=== PATIENT | female | born 1940 | race Caucasian/White ===

== ENCOUNTER 2018-06-16 21:40 | Inpatient (IN) ==
[2018-06-16 23:06] LABS: BILIRUBIN URINE NEGATIVE (NEGATIVE); BLOOD URINE NEGATIVE (NEGATIVE); CLARITY CLEAR (CLEAR); COLOR YELLOW; GLUCOSE URINE NEGATIVE (NEGATIVE); KETONE URINE TRACE mg/dL (NEGATIVE); LEUKOCYTES URINE TRACE (NEGATIVE); NITRITE URINE NEGATIVE (NEGATIVE); PROTEIN URINE TRACE mg/dL (NEGATIVE); URINE BACTERIA 1+ /HFP; URINE EPITHELIAL CELLS <10 /HPF (<10); URINE RBC <10 /HPF (<10); URINE SOURCE CATH; URINE WBC <10 /HPF (<10); UROBILINOGEN URINE 4 mg/dL
[2018-06-16 23:15] LABS: UR AMPHETAMINES QUAL NONE DETECTED (NONE DETECT); UR BARBITUATES QUAL NONE DETECTED (NONE DETECT); UR BENZODIAZEPIN QUAL NONE DETECTED (NONE DETECT); UR CANNABINOIDS QUAL NONE DETECTED (NONE DETECT); UR COCAINE QUAL NONE DETECTED (NONE DETECT); UR METHADONE QUAL NONE DETECTED (NONE DETECT); UR METHAMPHETAMINE QUAL NONE DETECTED (NONE DETECT); UR OPIATES QUAL NONE DETECTED (NONE DETECT); UR OXYCODONE QUAL NONE DETECTED (NONE DETECT); UR PCP QUAL NONE DETECTED (NONE DETECT); UR PROPOXYPHENE QUAL NONE DETECTED (NONE DETECT); UR TCA QUAL NONE DETECTED (NONE DETECT)
[2018-06-16 23:38] LABS: ALBUMIN 3.3 g/dL (3.5-5.0); CALCIUM 8.8 mg/dL (8.8-10.2); CREATININE 1.7 mg/dL (0.5-0.9); POTASSIUM 3.5 mmol/L (3.5-5.1); TOTAL BILIRUBIN 1.7 mg/dL (0.20-1.00); TOTAL PROTEIN 6.9 g/dL (6.3-8.3)
[2018-06-16 23:53] LABS: BASO# 0.03 X1000 (0.0-0.2); BASO% 0.2 % (0.0-0.8); EOS# 0.03 X1000 (0.0-0.7); EOS% 0.2 % (0.0-10.0); HEMATOCRIT 36.4 % (37.0-47.0); HEMOGLOBIN 11.8 g/dL (12.0-16.0); IMM GRAN# 0.04 X1000 (0.0-0.04); IMM GRAN% 0.3 % (0.0-0.5); LYMPH# 1.53 X1000 (1.2-3.4); LYMPH% 10.8 % (20.5-51.1); MCH 29.6 PG (27-31); MCHC 32.4 g/dL (33-37); MCV 91.5 FL (81-99); MONO# 1.45 X1000 (0.11-0.59); MONO% 10.2 % (1.7-9.3); MPV 12.1 FL (7.4-10.4); NEUT# 11.14 X1000 (1.4-6.5); NEUT% 78.3 % (42.2-75.2); PLT 227 X1000 (130-400); RBC 3.98 XMIL (4.2-5.4); RDW 13.6 % (11.5-14.5); WBC 14.22 X1000 (4.8-10.8)
[2018-06-16 23:54] LABS: BANDS 2 % (0-1); LARGE PLATELETS 1+; LYMPHS 10 % (21-51); MONO 8 % (1-9); SEGS 80 % (42-75)
[2018-06-17] MEDS ORDERED: NS 1,000 ML IV ONE ×2 (00:11→02:16)
--- NOTE | 2018-06-17 01:33 | PROVIDER DOCUMENTATION ---
This chart was entered by Judi Addison Scribe, acting as scribe for Randell Jung MD. HPI-General Adult - General Chief Complaint: Weakness Stated Complaint: FALL Time Seen by Provider: 06/16/18 21:56 Source: patient Allergies/Adverse Reactions: Patient Allergies Allergy/AdvReac Type Severity Reaction Status Date / Time No Known Allergies Allergy Verified 06/16/18 21:52 Home Medications: Home Medication List Medication Instructions Recorded Confirmed Last Taken Type Amlodipine Besylate/Benazepril 1 cap PO DAILY 02/14/18 02/14/18 Unknown History [Amlodipine-Benazepril 5-20 mg] Atorvastatin Calcium 20 mg PO QHS 02/14/18 02/14/18 Unknown History Furosemide [Lasix] 40 mg PO DAILY 02/14/18 02/14/18 Unknown History Gabapentin [Neurontin] 300 mg PO BID #60 capsule 02/14/18 Unknown Rx Hydrochlorothiazide 50 mg PO DAILY 02/14/18 02/14/18 Unknown History Levothyroxine [Synthroid] 137 mcg PO DAILY 02/14/18 02/14/18 Unknown History Metoprolol Succinate E.r. [Toprol 100 mg PO DAILY 02/14/18 02/14/18 Unknown History Xl] Octreotide Acetate,Mi-Spheres 20 mg IM DIRECTED 02/14/18 02/14/18 Unknown History [Sandostatin [place]] Pioglitazone HCl 30 mg PO DIRECTED 02/14/18 02/14/18 Unknown History Potassium Chloride 10 mg PO BID 02/14/18 02/14/18 Unknown History Valsartan 320 mg PO DAILY 02/14/18 02/14/18 Unknown History - History of Present Illness -Gen Adult Nature of Presenting Problems: Pt is 77/F presenting to ED w/ generalized weakness that started today. She sts that she started taking a new medication for sleeping. she also reports that she had food poisoning in the last 3 days. She sts that she is so weak that she cannot pull herself up and walk. Pt has hx of diabetic neuropathy. Location of Pain/Injury: reports: generalized Pain Radiation: reports: no radiation Severity: reports: moderate Onset/Duration: reports: 24 hours ago Timing: reports: still present Context/Activities at Onset: reports: none Modifying Factors: improves with: nothing Associated Symptoms: reports: denies symptoms Similar Symptoms Previously?: No Recently seen or treated by another doctor?: No Review of Systems - Adult - REVIEW OF SYSTEMS - ADULT Constitutional: reports: no symptoms reported Eyes: reports: no symptoms reported Ears, Nose, Mouth & Throat: reports: no symptoms reported Cardiovascular: reports: no symptoms reported. denies: chest pain, edema Respiratory: reports: no symptoms reported Gastrointestinal: reports: no symptoms reported. denies: abdominal pain, diarrhea, nausea, vomiting Genitourinary: reports: no symptoms reported. denies: discharge, frequency, flank pain, frequent UTI's, hematuria Musculoskeletal: reports: no symptoms reported Integumentary: reports: no symptoms reported Neurological: reports: no symptoms reported. denies: dizziness/vertigo, headache/migraines Psychiatric: reports: no symptoms reported Endocrine: reports: no symptoms reported Hematologic/Lymphatic: reports: no symptoms reported Allergic/Immunologic: reports: no symptoms reported All Other Systems: Reviewed and Negative Past History - Adult - PAST MEDICAL HISTORY-ADULT Review of Records: reports: Old Records Reviewed, Nursing Assessment Review, Medications Reviewed, Social history reviewed & non-contributory. - SOCIAL HISTORY Smoking: denies, non-smoker Substance Use: none/never Alcohol Use Frequency: never Living Situation: family Physical Exam-General - PHYSICAL EXAM-ADULT Initial Vital Signs Reviewed: Yes - CONSTITUTIONAL General Appearance: appears well, alert, no apparent distress, other - EYES Eyes: PERRL/EOMI - HEAD, EARS, NOSE, MOUTH & THROAT HENMT: normocephalic/atraumatic, moist mucous membranes, normal ENT inspection, TMs normal - NECK Neck: non-tender, full range of motion, supple - RESPIRATORY Respiratory: chest non-tender, lungs clear, normal breath sounds - CARDIOVASCULAR Cardiovascular: regular rate, rhythm, no edema - GASTROINTESTINAL (ABDOMEN) Abdominal Exam: normal bowel sounds, non tender, soft - LYMPHATIC Lymphatic: no adenopathy - MUSCULOSKELETAL Back Exam: normal inspection, no CVA tenderness, no vertebral tenderness Extremity: normal range of motion, non-tender, normal gait - SKIN Integumentary: normal color, normal turgor, warm/dry - NEUROLOGIC Neurologic: grossly normal - PSYCHIATRIC Psych/Mental Status: normal mood/affect, normal thought content, normal thought process, oriented x 3 Progress - PLAN OF CARE/RESULTS Progress/Plan/Lab Results: Vital Signs - 8 hr 06/16/18 21:47 Temperature 98.1 F Pulse Rate 99 H Respiratory Rate 20 Blood Pressure 104/69 O2 Sat by Pulse Oximetry 91 L Orders Category Date Time Status CT HEAD W/O CONTRAST [CT] Stat Exams 06/16/18 22:08 Ordered CBC WITH DIFF [HEME] Stat Lab 06/16/18 21:53 Ordered COMPREHENSIVE METABOLIC PANEL [CHEM] Stat Lab 06/16/18 21:[address] W/POSS RFLX CULT [URINALYSIS] Stat Lab 06/16/18 21:53 Uncollected URINE DRUG SCREEN PL Stat Lab 06/16/18 21:53 Uncollected EKG [EKG] Stat Ther 06/16/18 21:54 Ordered Result Diagrams: 06/16/18 22:30 06/16/18 23:14 - EKG 1 Time of EKG reading by physician:: 22:56 EKG Read and Signed by:: Randell Jung EKG Interpretation (*Must complete 3 of following elements*): Abnormal (normal sinus rhythm, left axis deviation, Right bundle branch block. abnormal ECG) [place]: left QRS: normal [place] Interval: normal - CONSULTS/PCP/HOSPITALIST Notification #1 *Consult/PCP/Hospitalist*: hospitalist agrees to admit pt. Time Discussed: : Consult Disposition: Admit Departure - Departure Date of Disposition Decision: 06/17/18 Time of Disposition Decision: : DIAGNOSIS: UTI (urinary tract infection), Weakness Disposition: ADMITTED INPATIENT 09 Certified Medical Emergency: Emergent Condition: Stable Referrals and Follow-Ups: Dinora Perez MD [Primary Care Provider] - - Critical Care Note This patient required my direct & personal management of CC.: No Attestation - Physician/ CATINA Attestation Patient care was provided by Advanced Practice Provider:: No The physician spent face to face time with patient:: Yes Advanced Practice Provider documentation review:: Supervising physician onsite and consulted in the evaluation and care of this patient. The physician did have a face to face encounter with the patient. This chart was documented by the indicated scribe, (Judi Addison, [place]) and accurately reflects the services I performed and decisions made by me, Randell Jung MD, as attested by the provider's signature.
[2018-06-17] MEDS: ROCEPHIN 1 GM in NS 50 ML IV SCH (01:55)
--- NOTE | 2018-06-17 06:44 | Diag Imaging Result Doc PS360 ---
CHEST-PORTABLE - 06/17/2018 INDICATION: weakness COMPARISON: None FINDINGS: The lungs are normally expanded and clear. Heart size and mediastinal contours are normal. No pneumothorax or pleural effusion. IMPRESSION: Negative exam. Electronically signed by Stanislav Gamez 06/17/2018 6:42 AM
--- NOTE | 2018-06-17 07:41 | Diag Imaging Result Doc PS360 ---
EXAM: CT HEAD W/O CONTRAST - 06/16/2018 HISTORY: weakness TECHNIQUE: CT head without contrast COMPARISON: None. FINDINGS: There are chronic appearing microvascular ischemic changes. There is no indication of recent infarct, although acute infarcts may not be immediately visible. There is no evidence of intracranial hemorrhage, mass effect, midline shift, or hydrocephalus. There is no evidence of skull fracture. There is mild paranasal sinus disease noted, and there has been been apparent previous surgery at the visualized superior left maxillary sinus. IMPRESSION: No visible acute intracranial abnormality. The sap functional analyst radiologist provided preliminary results at 11:16 PM on 06/16/2018. This exam was performed using automated exposure control, adjustment of mA or kV according to patient size, and/or use of iterative reconstruction technique. Electronically signed by Chance Mortensen 06/17/2018 7:38 AM
[2018-06-17] MEDS: NS 1,000 ML IV SCH ×3 (09:13→19:33)
[2018-06-17] MEDS: TOPROL XL PO SCH (09:14)
[2018-06-17] MEDS: ZYLOPRIM PO SCH (09:14)
[2018-06-17] MEDS: NEURONTIN PO SCH ×3 (09:14→21:27)
[2018-06-17] MEDS: ACTOS PO SCH (09:15)
--- NOTE | 2018-06-17 09:45 | HISTORY AND PHYSICAL ---
PRIMARY CARE PHYSICIAN: Dr. Perez. CHIEF COMPLAINT: Generalized weakness and possible food poisoning over the last three days now unable to pull self up and walk. HISTORY OF PRESENT ILLNESS: This is a 77-year-old female who presents to [facility] ER with complaints of generalized weakness. She states that she thought she may have food poisoning for the last 3 days, had had nausea, vomiting and diarrhea. She states now that she is unable to pull herself up and walk due to her weakness. When she arrived to the emergency room, she had a white blood cell count of 14.22. BUN was 27 with a creatinine of 1.7. Her TSH level is 0.03. She does have a history of hypothyroidism, and takes Synthroid 137 mcg daily. We will hold that and check a free T4 level. In the emergency room, she was given a liter of normal saline and 1 gram of Rocephin IV. Her urinalysis was clear except for 1+ bacteria. Urine drug screen showed none detected so she was admitted for further evaluation and treatment. PAST MEDICAL HISTORY: Diabetes, diabetic neuropathy, gout, hyperlipidemia, hypothyroidism, and hypertension. PAST SURGICAL HISTORY: Bilateral knee, pituitary tumor removed, cholecystectomy and hysterectomy. FAMILY HISTORY: Reviewed and noncontributory. SOCIAL HISTORY: She currently lives with family. Denies any tobacco, alcohol or illicit drug use. ALLERGIES: She has no known drug allergies. HOME MEDICATIONS: We will hold the following hydrochlorothiazide 50 mg p.o. daily, Synthroid 137 mcg p.o. daily and valsartan 320 mg p.o. daily. We will continue her allopurinol 100 mg p.o. daily, atorvastatin 20 mg p.o. at bedtime, gabapentin 600 mg p.o. t.i.d., metoprolol 100 mg p.o. daily an p.o. glitazone 30 mg p.o. daily. LABORATORY DATA: White blood cell count of 14.22, hemoglobin 11.8, hematocrit 36.4, and platelets 227,000. Sodium 135, potassium 3.5, chloride 96, CO2 27, BUN of 27, creatinine 1.7, glucose 195, total bilirubin of 1.70, AST of 40, ALT 24, and TSH of 0.03. Urinalysis was negative except for 1+ bacteria. Urine drug screen showed none detected. CT of the head showed no visible acute intracranial abnormality. Chest x-ray showed a negative exam. REVIEW OF SYSTEMS: She denied any fever, chills, or blurred vision. She did have some dizziness. Denied any chest pain, coughing, shortness of breath. She did have nausea, vomiting, or diarrhea with some mild abdominal cramping that has now resolved. Denied any burning or hurting with urination. PHYSICAL EXAMINATION: On arrival, she had a temperature of 98.1 degrees, pulse of 99, respirations 20, blood pressure 104/69 and saturating 91% on room air. GENERAL: This is a 77-year-old female who is sitting up in the bed and answers questions appropriately. HEENT: Normocephalic, atraumatic. Normal ENT inspection. Oropharynx: She does have some mild dry mucous membranes. Nares are clear. EYES: Pupils are equal, round, and reactive to light and accommodation. Extraocular movements are intact. NECK: Normal inspection. Normal range of motion. LUNGS: Clear to auscultation bilaterally with equal lung expansion and chest wall movement. HEART: Regular rate and rhythm. No murmurs, rubs, or gallops. ABDOMEN: Soft, nontender, and nondistended. Bowel sounds are present x4 quadrants. MUSCULOSKELETAL: She has 4/5 strength x4 extremities. NEUROLOGICAL: The cranial nerves 2-12 appear grossly intact. ASSESSMENT: 1. Generalized weakness secondary to a previous gastroenteritis prior to arriving. 2. Leukocytosis, most likely reactive. 3. Acute kidney injury. 4. Diabetes. PLAN: She was admitted to the medical unit, and placed on pattern blood sugars with sliding scale insulin. Telemetry. O2 per protocol. Diabetic diet. We are going to have physical therapy to evaluate and treat. We are going to check a free T4. I am holding her thyroid medication at this time as I feel that it is looking like that she is on too high of a dose at this time. Urine culture is pending. We will continue her home medications as previously identified. She is on normal saline at 125 mL an hour, and we will recheck a CBC and BMP in the morning. Dictated by JAMES Chavez for Jose Antonio Gardner MD cc: JAMES Chavez MD Dr. Sparacino
--- NOTE | 2018-06-17 10:01 | EKG Report ---
Test Performed on : 06/16/2018 10:56:37 PM Test Reason : weakness Blood Pressure : / mmHG Vent. Rate : 082 BPM Atrial Rate : 082 BPM P-R Int : 166 ms QRS Dur : 162 ms QT Int : 458 ms P-R-T Axes : 033 -41 -24 degrees QTc Int : 535 ms Normal sinus rhythm. Left axis deviation Right bundle branch block Abnormal ECG When compared with ECG of 05-FEB-2010 08:16, Nonspecific T wave abnormality has replaced inverted T waves in Lateral leads QT has lengthened Unconfirmed Result
[2018-06-17] MEDS: HUMALOG DOSE (PARKWAY) SUBQ SCH ×3 (11:02→21:26)
[2018-06-17] MEDS: LIPITOR PO SCH (21:26)
[2018-06-18] MEDS: ROCEPHIN 1 GM in NS 50 ML IV SCH (00:47)
[2018-06-18] MEDS: NS 1,000 ML IV SCH ×3 (04:15→17:43)
--- NOTE | 2018-06-18 05:07 | HISTORY AND PHYSICAL ---
HISTORY AND PHYSICAL ADDENDUM: Patient seen and examined by me [id number]. All the laboratory, vital signs, and images were reviewed. The patient presented with generalized weakness and bilateral lower extremity pain, likely neuropathy. As per the patient, she had a really bad gastroenteritis a few weeks ago, and after that, she is having some lower extremity pain that she describes as a tingling sensation and burning sensation, likely neuropathic pain. She does have diabetes, pending hemoglobin A1c, but as per the patient, she is taking care of that. It is really painful to palpation of the lower extremities, mostly at the plantar area of the feet, but there is no redness or signs of infection. We will continue with her gabapentin and trying to control her insulin. As per the patient, she is not able to walk because of the pain. She came in and was admitted with acute kidney injury, but to be honest, that could be her baseline. Tomorrow, we will check again her lab work. The last laboratory was done in 2011 with a creatinine of 1.1. I agree with the rest of the nurse practitioner's assessment and plan. cc: Jose Antonio Gardner MD MTDD
[2018-06-18] MEDS: SYNTHROID PO SCH ×2 (06:48)
[2018-06-18] MEDS: HUMALOG DOSE (PARKWAY) SUBQ SCH ×4 (06:48→21:30)
[2018-06-18 08:07] LABS: BASO# 0.02 X1000 (0.0-0.2); BASO% 0.2 % (0.0-0.8); EOS# 0.12 X1000 (0.0-0.7); EOS% 1.1 % (0.0-10.0); HEMATOCRIT 30.5 % (37.0-47.0); IMM GRAN# 0.03 X1000 (0.0-0.04); IMM GRAN% 0.3 % (0.0-0.5); MCH 30.7 PG (27-31); MCHC 32.8 g/dL (33-37); MCV 93.6 FL (81-99); MONO# 0.96 X1000 (0.11-0.59); MONO% 8.9 % (1.7-9.3); MPV 12.7 FL (7.4-10.4); NEUT# 8.28 X1000 (1.4-6.5); NEUT% 76.5 % (42.2-75.2); PLT 184 X1000 (130-400); RBC 3.26 XMIL (4.2-5.4); RDW 13.5 % (11.5-14.5); WBC 10.81 X1000 (4.8-10.8)
[2018-06-18 08:13] LABS: CALCIUM 8.2 mg/dL (8.8-10.2); CREATININE 1.6 mg/dL (0.5-0.9); POTASSIUM 3.6 mmol/L (3.5-5.1)
[2018-06-18 08:19] LABS: HEMOGLOBIN A1C 6.3 % (4.8-6.0)
[2018-06-18] MEDS: ACTOS PO SCH (09:30)
[2018-06-18] MEDS: TOPROL XL PO SCH (09:30)
[2018-06-18] MEDS: ZYLOPRIM PO SCH (09:30)
[2018-06-18] MEDS: NEURONTIN PO SCH ×3 (09:30→21:00)
--- NOTE | 2018-06-18 11:09 | PROGRESS NOTE ---
DATE: 06/18/2018 SUBJECTIVE: The patient still complains of having generalized weakness and unable to walk. She denies having any other complaints. OBJECTIVE: Vital signs: Temperature is 97.7 degrees, pulse 73 per minute, respiratory rate 20 per minute, blood pressure 144/70, pulse oximetry 98% on 2 L of oxygen by nasal cannula. General: The patient is alert and oriented x3. She does not appear to be in any acute distress. Cardiovascular: First and second heart sounds are audible without any murmurs or gallops. Respiratory: No respiratory distress noted. Bilateral lung air entry is moderately decreased, but there are no rales or rhonchi present on auscultation. Gastrointestinal: The patient is morbidly obese. Abdomen is soft and nontender on palpation. Normal bowel sounds at present. DIAGNOSTIC DATA: CBC showed hemoglobin of 10.0, hematocrit 30.5, white blood cell count 10.81, platelet count 184. In comparison, her WBC count was 14.22, hemoglobin 11.8, and hematocrit 36.4 on 06/16/2018. Chemistry showed BUN of 35 and creatinine 1.6. In comparison, her BUN was 27 and creatinine 1.7 two days ago. Her hemoglobin A1c was found to be 6.3%. IMPRESSION: This is a 77-year-old female who recently had acute gastroenteritis and now has generalized weakness and has developed acute kidney injury, but I do suspect that she has some chronic kidney disease as well. She has type 2 diabetes mellitus in addition to hypothyroidism, gout, and dyslipidemia. Also she has anemia which could be chronic. The drop in hemoglobin and hematocrit appears to be secondary to hemodilution. PLAN: We will continue with IV fluids and monitor her electrolytes. She will be continued on physical therapy and also continue her routine home medications including metoprolol, levothyroxine, gabapentin, allopurinol, Actos, and atorvastatin. She has been on ceftriaxone intravenously which will be continued because of the history of recent gastroenteritis. We will also continue giving her Lispro insulin as per protocol for any hyperglycemia. She continue probably be discharged home in the next 24 to 48 hours if her condition improves. cc: Yair Santana MD
[2018-06-18] MEDS: LIPITOR PO SCH (20:59)
[2018-06-19] MEDS: NS 1,000 ML IV SCH ×2 (01:06→15:21)
[2018-06-19] MEDS: ROCEPHIN 1 GM in NS 50 ML IV SCH (01:07)
[2018-06-19 06:34] LABS: BASO# 0.01 X1000 (0.0-0.2); BASO% 0.1 % (0.0-0.8); EOS# 0.14 X1000 (0.0-0.7); EOS% 1.5 % (0.0-10.0); HEMATOCRIT 28.6 % (37.0-47.0); HEMOGLOBIN 9.7 g/dL (12.0-16.0); IMM GRAN# 0.03 X1000 (0.0-0.04); IMM GRAN% 0.3 % (0.0-0.5); LYMPH# 1.12 X1000 (1.2-3.4); LYMPH% 12.3 % (20.5-51.1); MCH 32.8 PG (27-31); MCHC 33.9 g/dL (33-37); MCV 96.6 FL (81-99); MONO% 9.8 % (1.7-9.3); NEUT# 6.94 X1000 (1.4-6.5); PLT 222 X1000 (130-400); RBC 2.96 XMIL (4.2-5.4); RDW 13.9 % (11.5-14.5); WBC 9.14 X1000 (4.8-10.8)
[2018-06-19] MEDS: SYNTHROID PO SCH ×2 (06:46)
[2018-06-19 06:48] LABS: CALCIUM 8.6 mg/dL (8.8-10.2); CREATININE 1.2 mg/dL (0.5-0.9); POTASSIUM 3.9 mmol/L (3.5-5.1)
[2018-06-19] MEDS: HUMALOG DOSE (PARKWAY) SUBQ SCH ×4 (07:38→21:50)
--- NOTE | 2018-06-19 09:45 | PROGRESS NOTE ---
DATE: 06/19/2018 SUBJECTIVE: The patient denies having any complaints this morning except for generalized weakness that has improved as compared to when the patient came into the hospital. She states that physical therapy worked with her and because of that, she feels somewhat better. OBJECTIVE: Vital Signs: Temperature 99.2 degrees, pulse 73 per minute, respiratory rate 18 per minute, blood pressure 117/63, pulse oximetry 96% on 2 L of oxygen via nasal cannula. General: The patient is alert and oriented x3. She does not appear to be in any acute distress. Cardiovascular System: First and second heart sounds are audible without any murmurs or gallops. Respiratory System: No respiratory distress noted. Bilateral lung air entry is good without any rales or rhonchi. Gastrointestinal System: Patient is morbidly obese. Abdomen is soft and nondistended. It is nontender on palpation and normal bowel sounds are present. Diagnostic Data: CBC shows a hemoglobin of 9.7 and hematocrit 28.6. In comparison, her hemoglobin was 11.8 and hematocrit 36.4 on admission 3 days ago. Chemistry shows a BUN of 28 and creatinine 1.2. In comparison, her BUN and creatinine were 35 and 1.6 respectively yesterday. IMPRESSION: 1. Acute kidney injury secondary to recent gastroenteritis causing her to have generalized weakness. 2. Type 2 diabetes mellitus. 3. Hypothyroidism. 4. Dyslipidemia. 5. Anemia that could be secondary to hemodilution. PLAN: 1. The patient will be continued on IV fluids and I am going to decrease the rate to 100 mL per hour. We will repeat labs in the morning and recheck her BUN and creatinine. She is having generalized weakness and we are going to continue with physical therapy. That has helped her so far. 2. Patient is having anemia, because of which I am going to get an anemia workup. It does appear that this anemia is chronic and I believe the drop in hemoglobin and hematocrit is because of hemodilution. I am going to order stool for Hemoccult, along with some anemia lab work for further evaluation, however. 3. We will continue with the diabetes and hypothyroidism along with dyslipidemia care including lispro insulin as per protocol for any uncontrolled blood glucose levels. 4. Discharge planning will be in the next 24 to 48 hours and we will see if she can go home. Otherwise, we are going to plan for rehab transfer. cc: Yari Santana MD
[2018-06-19] MEDS: ZYLOPRIM PO SCH (09:56)
[2018-06-19] MEDS: NEURONTIN PO SCH ×3 (09:56→21:48)
[2018-06-19] MEDS: ACTOS PO SCH (09:56)
[2018-06-19] MEDS: TOPROL XL PO SCH (09:56)
[2018-06-19] MEDS: LIPITOR PO SCH (21:48)
[2018-06-20] MEDS: ROCEPHIN 1 GM in NS 50 ML IV SCH (02:04)
[2018-06-20] MEDS: NS 1,000 ML IV SCH ×3 (05:15→15:26)
[2018-06-20] MEDS: SYNTHROID PO SCH ×2 (06:04)
[2018-06-20 06:32] LABS: BASO# 0.01 X1000 (0.0-0.2); BASO% 0.2 % (0.0-0.8); EOS# 0.24 X1000 (0.0-0.7); EOS% 4.2 % (0.0-10.0); HEMATOCRIT 23.3 % (37.0-47.0); HEMOGLOBIN 9.6 g/dL (12.0-16.0); IMM GRAN# 0.01 X1000 (0.0-0.04); IMM GRAN% 0.2 % (0.0-0.5); LYMPH% 17.4 % (20.5-51.1); MCHC 41.2 g/dL (33-37); MCV 99.6 FL (81-99); MONO# 0.42 X1000 (0.11-0.59); MONO% 7.3 % (1.7-9.3); MPV 11.7 FL (7.4-10.4); NEUT# 4.06 X1000 (1.4-6.5); NEUT% 70.7 % (42.2-75.2); PLT 244 X1000 (130-400); RBC 2.34 XMIL (4.2-5.4); RDW 14.8 % (11.5-14.5); WBC 5.74 X1000 (4.8-10.8)
[2018-06-20 07:02] LABS: CALCIUM 8.9 mg/dL (8.8-10.2); CREATININE 1.1 mg/dL (0.5-0.9)
[2018-06-20] MEDS: HUMALOG DOSE (PARKWAY) SUBQ SCH ×4 (07:40→20:15)
--- NOTE | 2018-06-20 08:24 | PROGRESS NOTE ---
DATE: 06/20/2018 SUBJECTIVE: The patient denies having any acute complaints but continues to feel weak and has not been able to walk. OBJECTIVE: Vital Signs: Temperature 98 degrees, pulse is 74 per minute, respiratory rate 20 per minute, blood pressure 123/59, pulse oximetry 98% on 2 L of oxygen via nasal cannula. General: The patient is alert and oriented x3. She does not appear to be in any acute distress. Cardiovascular System: First and second heart sounds are audible without any murmurs or gallops. Respiratory System: Bilateral lung air entry is good without any rales or rhonchi. Gastrointestinal System: Abdomen is soft and nondistended. Normal bowel sounds are present. Diagnostic Data: CBC shows hemoglobin of 9.6 and hematocrit 23.3. This has been stable since her hemoglobin and hematocrit were 9.7 and 28.6 yesterday. Chemistry shows a BUN of 27 and creatinine 1.1. This is an improvement from a BUN of 28 and creatinine 1.2 yesterday. The rest of the labs are nondiagnostic. IMPRESSION: 1. Acute kidney injury secondary to recent gastroenteritis causing her to have generalized weakness. 2. Type 2 diabetes mellitus. 3. Hypothyroidism. 4. Dyslipidemia. 5. Anemia that has been stable and appears to be chronic. PLAN: 1. The patient has been having physical therapy but still feels weak. She will continue with IV fluids at 100 mL an hour. We are going to evaluate her for possible transfer to rehab since she is still not able to walk. 2. Diabetes and hypothyroidism along with dyslipidemia have been stable. We are going to continue with the current care. 3. Anemia is stable and, therefore, no further workup is needed. I believe that it is chronic and can be further worked up as outpatient by her PCP. 4. The patient appears to be ready to be discharged but she is not able to go home because of generalized weakness. I have placed a consult for case management social worker to see if we can get the patient transferred to rehab whenever a bed is available. cc: Yari Santana MD
[2018-06-20] MEDS: NEURONTIN PO SCH ×3 (10:07→20:14)
[2018-06-20] MEDS: TOPROL XL PO SCH (10:08)
[2018-06-20] MEDS: ZYLOPRIM PO SCH (10:08)
[2018-06-20] MEDS: ACTOS PO SCH (10:15)
[2018-06-20] MEDS: LIPITOR PO SCH (20:14)
[2018-06-21] MEDS ORDERED: LASIX IV ONE (00:10)
[2018-06-21 02:00] LABS: BE -5.6 mmoll (-3.0-3.0); BLOOD TYPE ARTERIAL; HCO3-(ACT) 20.3 mmoll (20.0-26.0); METHB 1.3 % (0.0-1.5); O2(CT) 15.2 mL/dL (15.0-23.0); PO2(98.6) 59 mmHg (60-100); SAMPLE BLOOD; SAO2 89.2 % (95.0-100.0); THB 12.5 g/dL (11.5-17.4)
[2018-06-21] MEDS ORDERED: AMIDATE ONE (02:10)
[2018-06-21] MEDS ORDERED: QUELICIN ONE (02:10)
[2018-06-21] MEDS ORDERED: VERSED ONE (02:10)
[2018-06-21] MEDS ORDERED: NORCURON ONE (02:10)
[2018-06-21 03:31] LABS: O2HB 86.3 % (95.0-99.0); PCO2(98.6) 104 mmHg (35-45); pH(98.6) 7.03 (7.35-7.45)
[2018-06-21 03:32] LABS: ALLEN TEST YES; MODALITY CANNULA
[2018-06-21] MEDS ORDERED: LEVOPHED 8 MG in D5 1/2 NS 250 ML IV SCH ×2 (04:00→16:00)
[2018-06-21] MEDS: ROCEPHIN 1 GM in NS 50 ML IV SCH (04:00)
[2018-06-21 04:25] LABS: BE -3.7 mmoll (-3.0-3.0); BLOOD TYPE ARTERIAL; O2(CT) 14.9 mL/dL (15.0-23.0); O2HB 94.8 % (95.0-99.0); PCO2(98.6) 42 mmHg (35-45); PO2(98.6) 74 mmHg (60-100); SAMPLE BLOOD; SAO2 97.5 % (95.0-100.0); SRATE 18 BPM; THB 11.1 g/dL (11.5-17.4); TVOL 750 mL; pH(98.6) 7.33 (7.35-7.45)
[2018-06-21 04:28] LABS: ALLEN TEST YES; MODALITY VENTILATOR
[2018-06-21] MEDS: HUMALOG DOSE (PARKWAY) SUBQ SCH ×2 (07:25→13:37)
--- NOTE | 2018-06-21 07:25 | Diag Imaging Result Doc PS360 ---
EXAM: CHEST-PORTABLE - 06/21/2018 HISTORY: increased wheezing TECHNIQUE: Portable chest COMPARISON: 06/17/2018 FINDINGS: There is increased prominence of vascular/interstitial markings compared to prior. There is some consolidation and/or atelectasis on the right which is most prominent at the right base. There is no pneumothorax identified. Heart size appears stable. IMPRESSION: Development of pulmonary edema and/or interstitial pneumonitis/pneumonia, most prominent on the right. The captain fire prevention bureau radiologist provided preliminary results at 2:11 AM on 06/21/2018. Electronically signed by Chance Mortensen 06/21/2018 7:23 AM
--- NOTE | 2018-06-21 07:29 | Diag Imaging Result Doc PS360 ---
EXAM: CHEST/ABD TUBE PLACEMENT - 06/21/2018 HISTORY: verify tube placement TECHNIQUE: Portable chest COMPARISON: Prior portable chest of 06/01/2018 FINDINGS: There has been interval insertion of an endotracheal tube, with its tip located 4 cm above the rao. There are findings of pulmonary edema and/or pneumonitis/pneumonia similar to prior, except for some interval decrease in atelectasis on the right. IMPRESSION: Tip of endotracheal tube in satisfactory position 4 cm above the rao. Electronically signed by Chance Mortensen 06/21/2018 7:27 AM
[2018-06-21 07:48] LABS: ALBUMIN 2.8 g/dL (3.5-5.0); CALCIUM 9.5 mg/dL (8.8-10.2); TOTAL BILIRUBIN 0.8 mg/dL (0.20-1.00); TOTAL PROTEIN 6.6 g/dL (6.3-8.3)
[2018-06-21] MEDS ORDERED: LASIX IV SCH (09:00)
--- NOTE | 2018-06-21 09:22 | PROGRESS NOTE ---
DATE: 06/21/2018 SUBJECTIVE: The patient is intubated, but not sedated. She is awake and follows basic commands. Apparently, last night she was complaining of shortness of breath. X-ray shows pulmonary edema. She received 1 dose of Lasix, but apparently she ended up being intubated. OBJECTIVE: Vital Signs: Temperature 97.9, heart rate 74, respiratory rate 18, blood pressure 160/90, O2 saturation 95% on mechanical ventilator at FiO2 of 80%. General Examination: This is a chronically ill-looking, 77-year-old female lying in bed, in no acute distress. HEENT: Head is normocephalic, atraumatic. Neck: No JVD noted. No carotid bruits. No lymphadenopathy. No thyromegaly. Cardiovascular: S1, S2 heard. No murmurs, gallops, or rubs. Regular rate and rhythm. Respiratory: Coarse breath sounds and crackles noted in both pulmonary bass, mostly noted in both bases. Patient is not using any accessory muscles or having work of breathing. Abdomen: Soft. A little bit distended. Obese, nontender to palpation. Bowel sounds present. No organomegaly. No signs of peritoneal irritation. Extremities: No clubbing, cyanosis or edema. Peripheral pulses present in both legs. Neurological: Patient is intubated, but not sedated. The patient is awake, follows commands. LABORATORY DATA: White cell count 4.47, hemoglobin 11.7, hematocrit 26.9, platelets 275,000. ABG done before intubation was pH 7.03 with pCO2 104, PO2 59 with oxyhemoglobin 86, and after intubation this morning around 4 a.m. it was 7.33 with pCO2 42, PO2 74, oxyhemoglobin 94.8. ASSESSMENT AND PLAN: 1. Acute respiratory failure on ventilator. At this point, most likely reason why this patient has developed this respiratory failure was flash pulmonary edema. She developed severe respiratory acidosis as we can see in the ABG from 2:00 a.m. At this point, we are trying to wean off oxygen. Considering that we do not have a pulmonary doctor here in [facility], we will try to transfer this patient over to [facility]. While she is here, we are going to order echocardiogram. We will continue with Lasix. She is going to receive 40 mg IV q.12 hours. We will continue to monitor this closely. 2. Pulmonary edema/pneumonia. Patient x-ray from last night shows development of pulmonary edema and/or interstitial pneumonitis or pneumonia, most prominent on the right. Considering that this lady has normal white cell scan and not developing any fever, we will continue with ceftriaxone that this patient is receiving for the last 4 days. 3. Acute kidney injury secondary to recent gastroenteritis. Creatinine is almost back to normal. We will continue to monitor BMP. 4. Hypothyroidism. We will continue with home doses of levothyroxine. 5. Dyslipidemia. Aware. We will continue home medications. 6. Anemia of chronic disease. Hemoglobin has been stable so far in the last 4 days. We will continue to monitor. 7. Disposition. At this point, we are going to keep this patient in the intensive care unit here in [place]. We will try to transfer this patient. Also, considering her weight and comorbidities, we are going to order a D-dimer and if it is positive, we will go ahead and order a CT angiogram of the pulmonary arteries looking for pulmonary embolism. cc: Kwabena Valentine MD
[2018-06-21 09:44] LABS: BASO# 0.02 X1000 (0.0-0.2); BASO% 0.6 % (0.0-0.8); EOS# 0.02 X1000 (0.0-0.7); EOS% 0.6 % (0.0-10.0); HEMATOCRIT 26.4 % (37.0-47.0); HEMOGLOBIN 10.4 g/dL (12.0-16.0); IMM GRAN# 0.01 X1000 (0.0-0.04); IMM GRAN% 0.3 % (0.0-0.5); LYMPH# 0.76 X1000 (1.2-3.4); LYMPH% 22.8 % (20.5-51.1); MCH 39.5 PG (27-31); MCHC 39.4 g/dL (33-37); MCV 100.4 FL (81-99); MONO# 0.52 X1000 (0.11-0.59); MONO% 15.6 % (1.7-9.3); MPV 11.4 FL (7.4-10.4); NEUT% 60.1 % (42.2-75.2); PLT 243 X1000 (130-400); RBC 2.63 XMIL (4.2-5.4); RDW 15.5 % (11.5-14.5); WBC 3.33 X1000 (4.8-10.8)
[2018-06-21 09:49] LABS: INR 1.21; PROTIME 15.9 Seconds (11.0-16.0)
[2018-06-21 09:50] LABS: PTT 47.6 Seconds (22.3-41.8)
[2018-06-21 09:54] LABS: BANDS 1 % (0-1); LYMPHS 22 % (21-51); MONO 10 % (1-9); SEGS 67 % (42-75)
[2018-06-21 09:55] LABS: ANISOCYTOSIS 1+
[2018-06-21] MEDS: NEURONTIN PO SCH ×3 (10:00→21:19)
[2018-06-21] MEDS: SYNTHROID PO SCH ×2 (10:02→10:03)
[2018-06-21] MEDS: ZYLOPRIM PO SCH (10:02)
[2018-06-21] MEDS: TOPROL XL PO SCH (10:02)
[2018-06-21] MEDS: ACTOS PO SCH (10:07)
[2018-06-21 11:34] LABS: BE -0.9 mmoll (-3.0-3.0); BLOOD TYPE ARTERIAL; HCO3-(ACT) 24.2 mmoll (20.0-26.0); METHB 1.4 % (0.0-1.5); O2(CT) 15.8 mL/dL (15.0-23.0); PCO2(98.6) 37 mmHg (35-45); PO2(98.6) 118 mmHg (60-100); SAMPLE BLOOD; SAO2 99.1 % (95.0-100.0); SRATE 18 BPM; THB 11.6 g/dL (11.5-17.4); TVOL 600 mL; pH(98.6) 7.41 (7.35-7.45)
[2018-06-21 11:37] LABS: MODALITY VENTILATOR
[2018-06-21 11:38] LABS: ALLEN TEST YES
[2018-06-21] MEDS: HUMALOG SUBQ SCH ×2 (16:09→21:20)
--- NOTE | 2018-06-21 16:14 | Diag Imaging Result Doc PS360 ---
EXAM: CHEST-PORTABLE 06/21/2018 HISTORY: Verify NG tube placement TECHNIQUE: AP portable at 1602 COMMENT: There is an NG tube with its tip below the diaphragm. There is an endotracheal tube with its tip slightly below the thoracic inlet. Compared to the previous study at 1420, the pulmonary opacities have improved particularly in the right apical region. IMPRESSION: Improved pulmonary edema and/or pneumonia. Electronically signed by Roderick Munoz 06/21/2018 4:12 PM
[2018-06-21] MEDS ORDERED: ATIVAN IV PRN (16:32)
[2018-06-21 17:27] LABS: ALLEN TEST YES; BE 0.4 mmoll (-3.0-3.0); BLOOD TYPE ARTERIAL; HCO3-(ACT) 25.2 mmoll (20.0-26.0); METHB 1.3 % (0.0-1.5); O2(CT) 14.4 mL/dL (15.0-23.0); O2HB 95.7 % (95.0-99.0); PCO2(98.6) 45 mmHg (35-45); PO2(98.6) 102 mmHg (60-100); SAMPLE BLOOD; SAO2 98.1 % (95.0-100.0); SRATE 16 BPM; THB 10.6 g/dL (11.5-17.4); TVOL 550 mL; pH(98.6) 7.37 (7.35-7.45)
[2018-06-21 17:28] LABS: MODALITY VENTILATOR
[2018-06-21] MEDS: SODIUM CHLORIDE 0.9% INJ SCH (17:57)
[2018-06-21] MEDS: LEVAQUIN 500 MG/D5W 500 MG/100 ML IVPB IV SCH (17:57)
[2018-06-21] MEDS: PROTONIX IV SCH (17:57)
[2018-06-21] MEDS: LOVENOX SUBQ SCH (18:10)
[2018-06-21 20:17] LABS: ALLEN TEST YES; BE 1.7 mmoll (-3.0-3.0); BLOOD TYPE ARTERIAL; HCO3-(ACT) 26.2 mmoll (20.0-26.0); METHB 1.5 % (0.0-1.5); O2(CT) 13.4 mL/dL (15.0-23.0); O2HB 94.5 % (95.0-99.0); PCO2(98.6) 46 mmHg (35-45); PO2(98.6) 80 mmHg (60-100); SAMPLE BLOOD; SAO2 97.3 % (95.0-100.0); pH(98.6) 7.38 (7.35-7.45)
[2018-06-21 20:18] LABS: MODALITY VENTILATOR
[2018-06-21] MEDS: LIPITOR PO SCH (21:20)
[2018-06-21] MEDS: LASIX IV SCH (21:20)
--- NOTE | 2018-06-21 21:20 | ECHO REPORT ---
ORDER DATE: 06/21/2018 INDICATION: Respiratory failure. Patient on ventilator. FINDINGS: 1. The right atrium appears normal in size. It is very difficult to visualize. 2. Mild tricuspid regurgitation. Insufficient data to estimate the RV systolic pressure. 3. Right ventricle appears to be normal in size and function. 4. No significant pulmonic insufficiency on poor views of the pulmonic valve. 5. Normal left atrial size at 3.6 cm. 6. No mitral valve prolapse. Mild mitral regurgitation. 7. Normal left ventricular size with an end-diastolic dimension of 4.3. I do not see any clear evidence of left ventricular hypertrophy but endocardial borders are very poorly defined. The LV systolic function appears to be normal and with an ejection fraction greater than 55%. 8. Aortic valve is not well visualized on 2-dimensional imaging. There is mild insufficiency across the aortic valve. There is a peak gradient of 21 with a mean of 12 suggesting the possibility of minimal aortic stenosis but again this is a challenging study. 9. Aorta appears normal in visualized segments. 10. No pericardial effusion seen. cc: MD Kwabena Sandra MD
[2018-06-21] MEDS: FOLIC ACID 1 MG in NS 50 ML IV SCH (22:50)
--- NOTE | 2018-06-22 02:03 | Extremity Venous Study ---
PROCEDURE NAME: Venous U/S Bilateral Legs - 06/21/2018 THROAT CUTTER: Estevan James RVT. REQUESTING PHYSICIAN: Yoel Morris MD. INDICATION: Elevated D-dimer. FINDINGS: Deep superficial veins of bilateral lower extremities were visualized. In the left lower extremity the posterior tibial vein does lack compressibility with visualized thrombus consistent with acute DVT. All other vessels are compressible forward flow, no evidence of deep or superficial venous thrombosis. SUMMARY: Acute DVT of the left posterior tibial vein. cc: Sonal Richards MD
--- NOTE | 2018-06-22 02:39 | PROGRESS NOTE ---
DATE: 06/21/2018 ADDENDUM: The patient was evaluated. She is awake, alert. I weaned her oxygen down to 40% and her saturations maintain themselves. I think we will wean to extubate because she seems much improved. She has a very elevated D-dimer noted by Cele Morris, which is difficult to assess because she has been in the hospital for several days. However, we did progress with a lower extremity DVT Doppler which did show a DVT in her left leg at least preliminarily, and that she is at risk for PE. She did go into sudden pulmonary edema with a normal ejection fraction, so pulmonary embolus is a possibility. We will go ahead anticoagulate and proceed to extubation. She is also folate deficient so we will initiate that. We will continue to follow closely. cc: Yoel Morris MD
[2018-06-22] MEDS: ROCEPHIN 1 GM in NS 50 ML IV SCH (03:40)
[2018-06-22 05:06] LABS: ALLEN TEST YES; BLOOD TYPE ARTERIAL; METHB 0.4 % (0.0-1.5); O2(CT) 13.6 mL/dL (15.0-23.0); PO2(98.6) 77 mmHg (60-100); SAMPLE BLOOD; SAO2 96.7 % (95.0-100.0); THB 10.1 g/dL (11.5-17.4); pH(98.6) 7.37 (7.35-7.45)
[2018-06-22 05:07] LABS: MODALITY COOL AEROSOL
[2018-06-22 05:08] LABS: PCO2(98.6) 52 mmHg (35-45)
[2018-06-22] MEDS: HUMALOG SUBQ SCH ×4 (06:00→20:56)
[2018-06-22] MEDS: LOVENOX SUBQ SCH ×2 (06:17→18:01)
[2018-06-22] MEDS: SYNTHROID PO SCH (06:17)
--- NOTE | 2018-06-22 06:23 | Diag Imaging Result Doc PS360 ---
CT ANGIOGRM PULMONARY ARTERIES - 06/21/2018 INDICATION: R/O PE TECHNIQUE: Axial CT images were obtained after administering intravenous contrast. Coronal MIP images were generated. COMPARISON: None FINDINGS: There is a nasogastric tube in the stomach. There are cholecystectomy clips. No adenopathy. There is no pulmonary embolism. There is mild cardiomegaly. There are small bilateral pleural effusions. There is some dependent atelectasis bilaterally. There is some hazy central interstitial groundglass opacity compatible with pulmonary edema. There are moderate degenerative changes of the spine. No acute or suspicious bony lesion. IMPRESSION: Negative for pulmonary embolism. Cardiomegaly, pulmonary edema, small pleural effusions. This exam was performed using automated exposure control, adjustment of mA or kV according to patient size, and/or use of iterative reconstruction technique Electronically signed by Stanislav Gamez 06/22/2018 6:20 AM
[2018-06-22 07:00] LABS: CALCIUM 9.3 mg/dL (8.8-10.2); CREATININE 1.1 mg/dL (0.5-0.9); POTASSIUM 3.6 mmol/L (3.5-5.1)
[2018-06-22] MEDS ORDERED: SYNTHROID PO SCH (07:00)
--- NOTE | 2018-06-22 07:03 | EKG Report ---
Test Performed on : 06/22/2018 06:50:32 AM Test Reason : PAF Blood Pressure : / mmHG Vent. Rate : 087 BPM Atrial Rate : 087 BPM P-R Int : 174 ms QRS Dur : 162 ms QT Int : 452 ms P-R-T Axes : 042 -07 036 degrees QTc Int : 543 ms Normal sinus rhythm. Right bundle branch block Abnormal ECG When compared with ECG of 22-JUN-2018 06:50, (Unconfirmed) No significant change was found Confirmed by Eldon DOWLING, Abhay Gonzalez ([id number]) on 06/22/2018 8:02:15 AM
--- NOTE | 2018-06-22 07:35 | Diag Imaging Result Doc PS360 ---
EXAM: CHEST-1 VIEW INDICATION: SOB TECHNIQUE: One view COMPARISON: 06/21/2018 FINDINGS: The ET tube is in stable position. There continues to be slight improvement of the bilateral infiltrates, especially at the right lower lung zone as compared to the previous study. No new consolidation is identified cardiac silhouette is stable. IMPRESSION: Interval slight improvement. Electronically signed by Titi Rodriguez 06/22/2018 7:33 AM
[2018-06-22] MEDS: LASIX IV SCH ×2 (08:42→20:55)
[2018-06-22] MEDS: ZYLOPRIM PO SCH (08:43)
[2018-06-22] MEDS: TOPROL XL PO SCH (08:43)
[2018-06-22] MEDS: NEURONTIN PO SCH ×3 (08:43→20:55)
[2018-06-22] MEDS ORDERED: ACTOS PO SCH (09:00)
[2018-06-22 11:42] LABS: BASO# 0.02 X1000 (0.0-0.2); BASO% 0.5 % (0.0-0.8); EOS# 0.35 X1000 (0.0-0.7); EOS% 8.1 % (0.0-10.0); HEMOGLOBIN 9.8 g/dL (12.0-16.0); LYMPH# 1.09 X1000 (1.2-3.4); LYMPH% 25.2 % (20.5-51.1); MCV 103.4 FL (81-99); MONO# 0.48 X1000 (0.11-0.59); MONO% 11.1 % (1.7-9.3); MPV 10.9 FL (7.4-10.4); NEUT# 2.39 X1000 (1.4-6.5); NEUT% 55.1 % (42.2-75.2); PLT 282 X1000 (130-400); WBC 4.33 X1000 (4.8-10.8)
[2018-06-22 11:49] LABS: BANDS 8 % (0-1); LYMPHS 28 % (21-51); MONO 8 % (1-9); SEGS 56 % (42-75)
[2018-06-22] MEDS: SODIUM CHLORIDE 0.9% INJ SCH (16:47)
[2018-06-22] MEDS: PROTONIX IV SCH (16:47)
[2018-06-22] MEDS: LEVAQUIN 500 MG/D5W 500 MG/100 ML IVPB IV SCH (16:47)
[2018-06-22] MEDS: LIPITOR PO SCH (20:55)
--- NOTE | 2018-06-22 21:36 | PROGRESS NOTE ---
DATE: 06/22/2018 INTERVAL HISTORY: Patient extubated last night successfully. Doing well this morning. Awake, alert, following commands. Still some dyspnea with exertion, but improving from previous. No other acute events overnight. No complaints. REVIEW OF SYSTEMS: Twelve point review of systems negative except as per interval history. LABORATORY DATA: WBC 4.3, hemoglobin 9.8, platelets 282,000. ABG with pH 7.3, pCO2 of 52, sodium 140, potassium 3.6, BUN 38, creatinine 1.1, glucose 108. BNP is 5300. IMAGING: Chest x-ray with slight improvement in bilateral infiltrates suspicious for lung zone. CTA yesterday negative for pulmonary embolism. Does show pulmonary edema and small PE. Lower extremity Doppler shows acute DVT of the left posterior tibial vein. VITALS: T-max 99.8 degrees, pulse 74, respirations 14, blood pressure 143/82, O2 saturation 93% on 6 L by mask. PHYSICAL EXAMINATION: General: No acute distress. Vitals as above. HEENT: Normocephalic, atraumatic. Neck: Membranes no cervical adenopathy. Cardiovascular: Regular rate and rhythm. No wheezing, rales, or rhonchi. No murmurs, rubs, or gallops. Pulmonary: Still with fairly diffuse rales, but no increased work of breathing. No accessory muscle use. Abdomen: Soft, nontender. Bowel sounds positive. Extremities: Trace lower extremity edema, left greater than right. Peripheral pulses intact. No clubbing or cyanosis. Neurologic: Cranial nerves grossly intact. No focal deficits identified. Psychiatric: Normal mood and affect. Awake, alert, oriented x3. Skin: No rashes or lesions identified. ASSESSMENT AND PLAN: 1. Acute hypoxic respiratory failure secondary to flash pulmonary edema, etiology uncertain. Echocardiogram without any clear evidence of CHF. He does have elevated BNP. CTA negative for pulmonary embolism despite DVT. Regardless, does appear to be responding to Lasix and antibiotics. Continue Lasix 40 b.i.d., Rocephin and Levaquin. Intubated initially but was successfully extubated last night and doing well since then. We will continue to wean down oxygen as possible. 2. NENA unlikely CKD 3, now resolved. Continue monitoring kidney function. 3. Hypothyroidism. Continue home Synthroid. 4. Hyperlipidemia continue home atorvastatin. 5. Likely anemia of chronic disease. Currently stable overall. Continue to monitor blood counts. 6. Left lower extremity DVT on anticoagulation with Lovenox. Continue to monitor. 7. Diabetes mellitus. Reasonable control on current regimen. Continue to monitor glucose. 8. Morbid obesity and likely Pickwickian syndrome. Advised on diet and exercise. ABG with hypercapnia, which is likely chronic and related to obesity hypoventilation. 9. Gout. Continue home allopurinol. 10. Deep vein thrombosis prophylaxis. Lovenox. [facility]
[2018-06-22] MEDS: FOLIC ACID 1 MG in NS 50 ML IV SCH (22:25)
--- NOTE | 2018-06-23 00:08 | CONSULTATION ---
DATE OF CONSULTATION: 06/22/2018 REQUESTING PROVIDER: JAMES Casas. REASON FOR CONSULTATION: Respiratory failure, ventilator management. HISTORY OF PRESENT ILLNESS: This is a 77-year-old female with a medical history of diabetes, diabetic neuropathy, gout, hyperlipidemia, hypothyroidism, hypertension and anemia. She presented to [facility] on 06/17/2018 with acute generalized weakness and bilateral lower extremity pain after 3 days of possible food poisoning. She has been admitted to [facility] for further evaluation and management. On the evening of 06/20/2018, patient developed anxiety, confusion, SOB and wheezing. Patient eventually became unresponsive and was intubated at 2:20, 06/21/2018. CTPA revealed cardiomegaly, pulmonary edema, and small pleural effusions, but ruled out pulmonary embolism. Venous U/S bilateral legs revealed acute DVT in the left posterior tibial vein. Patient also has a highly elevated D-Dimer. She was transferred to our facility in the afternoon. And she was extubated successfully at 21:36, 06/21/2018. At the time of my exam, patient is on Cool Aerosol with FiO2 40%. She is alert and oriented to person and place with confusion noted at times. Patient's and son are at the bedside. Patient still reports generalized weakness; she denies leg pain, n/v/d, abdominal pain/tenderness, headache, fever/chill, chest pain or palpitation. PAST MEDICAL HISTORY: 1. Diabetes. 2. Diabetic nephropathy. 3. Gout. 4. Hyperlipidemia. 5. Hypothyroidism. 6. Hypertension. 7. Anemia 8. Morbid obesity, PAST SURGICAL HISTORY: 1. Bilateral knee surgery. 2. Pituitary tumor removed. 3. Cholecystectomy. 4. Hysterectomy. SOCIAL HISTORY: She currently lives with her family. The patient has no history of alcohol or illicit drug use. She was a former smoker, and quit 15 years ago. She used to smoke at least 1 pack per day for 25 years. Her smoked about 60 years, and he is currently still smoking. They have 1 pet dog for over 5 years inside the house. ALLERGIES: She has no known drug allergies. FAMILY HISTORY: Reviewed and noncontributory. REVIEW OF SYSTEMS: A 10-point review of systems was reviewed, and the pertinent is listed within the HPI, otherwise noncontributory. PHYSICAL EXAMINATION: Vital Signs: Temperature 99.8 degrees, blood pressure 131/105, pulse 89, respiratory rate 19, oxygen saturation 98%, with FiO2 40%. General: This is a 77-year-old female, who is lying in the bed and appears very weak. She answer questions appropriately. No acute distress noted. The patient's and son at bedside. HEENT: Atraumatic. Trachea midline. Mucosa pink and moist. Respiratory: Rhonchi bilaterally noted. No wheezing, no rales. Lungs expanded equally bilaterally. Cardiovascular: Regular rate and rhythm, without murmur noted. Gastrointestinal: Normoactive bowel sounds in all 4 quadrants. Soft, nontender , nondistended, obese. Extremities: Right lower extremity has trace edema. No cyanosis. No clubbing. Neurologic: Alert and oriented x2. The patient shows generalized weakness. She has confusion at times. ASSESSMENT: This is a 77-year-old female with a medical history of diabetes, diabetic neuropathy, gout, hyperlipidemia, hypothyroidism, hypertension, anemia and morbid obesity. She has been admitted with acute generalized weakness secondary to a previous gastroenteritis, acute kidney injury, diabetic neuropathy. Later patient developed DVT, flash pulmonary edema, and acute respiratory failure. 1. Acute hypoxemic on chronic hypercapnic respiratory failure secondary to flash pulmonary edema and likely undiagnosed obesity hyperventilation syndrome/obstructive sleep apnea. 2. Flash pulmonary edema: Echocardiogram showed no evidence of congestive heart failure; BNP was elevated to 6318 this morning. 3. DVT in the left posterior tibial vein. 4. High risk for pulmonary embolism. 5. Likely undiagnosed obesity hypoventilation syndrome/obstructive sleep apnea. PLAN: 1. Continue to wean off oxygen 2. Continue diuretic, antibiotic and anticoagulant as you are doing. 3. Daily ABG, CXR, CBC and BMP. 4. Consider BiPAP for likely OHS/SUMI if appropriate. 5. Continue GI and DVT prophylaxis. Thank you for the courtesy of this consult. Dictated by JAMES Garduno for Bobby Cuenca MD cc: JAMES Garduno MD [facility]
[2018-06-23] MEDS: MORPHINE IV PRN (01:53)
[2018-06-23] MEDS: ROCEPHIN 1 GM in NS 50 ML IV SCH (03:30)
[2018-06-23 05:23] LABS: ALLEN TEST YES; BLOOD TYPE ARTERIAL; HCO3-(ACT) 32.7 mmoll (20.0-26.0); METHB 1.1 % (0.0-1.5); O2(CT) 13.5 mL/dL (15.0-23.0); O2HB 94.2 % (95.0-99.0); PO2(98.6) 79 mmHg (60-100); SAMPLE BLOOD; SAO2 96.6 % (95.0-100.0); THB 10.1 g/dL (11.5-17.4); pH(98.6) 7.36 (7.35-7.45)
[2018-06-23 05:25] LABS: MODALITY CANNULA
[2018-06-23 05:49] LABS: BASO# 0.02 X1000 (0.0-0.2); BASO% 0.6 % (0.0-0.8); EOS# 0.31 X1000 (0.0-0.7); EOS% 9.4 % (0.0-10.0); HEMOGLOBIN 9.6 g/dL (12.0-16.0); IMM GRAN# 0.02 X1000 (0.0-0.04); IMM GRAN% 0.6 % (0.0-0.5); LYMPH# 0.99 X1000 (1.2-3.4); MONO# 0.37 X1000 (0.11-0.59); MONO% 11.2 % (1.7-9.3); MPV 11.1 FL (7.4-10.4); NEUT# 1.59 X1000 (1.4-6.5); NEUT% 48.2 % (42.2-75.2); PLT 282 X1000 (130-400); RBC 1.21 XMIL (4.2-5.4); RDW 14.6 % (11.5-14.5)
[2018-06-23 06:06] LABS: CALCIUM 8.5 mg/dL (8.8-10.2); CREATININE 1.2 mg/dL (0.5-0.9)
[2018-06-23] MEDS: SYNTHROID PO SCH (06:21)
[2018-06-23] MEDS: LOVENOX SUBQ SCH ×2 (06:21→17:17)
[2018-06-23] MEDS: HUMALOG SUBQ SCH ×4 (07:17→20:53)
--- NOTE | 2018-06-23 07:27 | Diag Imaging Result Doc PS360 ---
EXAM: CHEST-1 VIEW 06/23/2018 HISTORY: SOB TECHNIQUE: AP portable at 0508 COMMENT: There is cardiomegaly. There is ill-defined opacity in the retrocardiac portion of the left lower lobe. This appears slightly worse than on 06/22/2018 and the hemidiaphragm is partially obscured currently. IMPRESSION: Cardiomegaly and pulmonary edema with left lower lobe atelectasis versus pneumonia. Electronically signed by Roderick Munoz 06/23/2018 7:25 AM
[2018-06-23] MEDS: NEURONTIN PO SCH ×3 (08:27→20:53)
[2018-06-23] MEDS: LASIX IV SCH ×2 (08:27→20:53)
[2018-06-23] MEDS: ZYLOPRIM PO SCH (08:28)
[2018-06-23] MEDS: TOPROL XL PO SCH (08:28)
--- NOTE | 2018-06-23 08:58 | PROGRESS NOTE ---
DATE: 06/23/2018 OVERNIGHT: No acute events. SUBJECTIVE: The patient is feeling better. She denies any chest pain. She denies feeling short of breath. She has not eaten a lot. She denies any nausea, vomiting, abdominal pain, or diarrhea. We discussed about her condition and the fact that she had water inside her lung, which was the reason why she required intubation. I answered all of her questions. OBJECTIVE: Vital signs: Currently temperature of 97.4, pulse 74 per minute, blood pressure 138/77, saturating 97% on 2 L nasal cannula. General: Morbidly obese, does not appear in any acute distress. Oral cavity: Moist. Lungs: Air entry bilaterally equal with mild end- expiratory wheezes and inspiratory crackles bilateral infrascapular region. Cardiovascular: S1, S2 normal. No murmur, rub, or gallop. Abdomen: Soft, nontender. Extremities: No lower extremity edema, except tenderness bilateral lower extremities. Neurologic: Alert and oriented x3 and motor power is 3-4 in 5 bilateral upper and bilateral lower extremities without any obvious facial droop. LABS: Today suggestive of low white cell count, hemoglobin of 9.6, platelet count of 282,000. ABG suggestive of what appears to be chronic hypercarbia, hypokalemia, CKD stage 3. Microbiology: Urine culture - no growth to date. IMAGING: Chest x-ray suggestive of cardiomegaly, pulmonary edema with left lower lobe atelectasis versus pneumonia. ASSESSMENT AND PLAN: 1. Acute hypoxic-hypercarbic respiratory failure due to flash pulmonary edema of uncertain etiology and suspected left lower lobe pneumonia, which prompted her transfer from [facility] to [facility] requiring intubation. She is now status post extubation since June 21, 2018. Echocardiogram without any evidence of congestive heart failure, though she did have elevated proBNP. CT angiography did not detect pulmonary edema, though, lower extremity had acute deep venous thrombosis of left posterior tibial vein. Continue intravenous Lasix and intravenous antibiotics. Continue oxygenation to maintain saturation more than 94%. I will start her on nighttime continuous positive airway pressure, considering her chronic hypercarbic respiratory failure. She should get outpatient pulmonology evaluation for sleep apnea. 2. Acute kidney injury on chronic kidney disease stage 3, now appears to be stable. 3. Acute deep vein thrombosis of left posterior tibial vein. Continue enoxaparin subcu therapeutic dose. 4. History of hypothyroidism, hyperlipidemia, and gout. Continue home levothyroxine, home atorvastatin, and allopurinol. Continue home gabapentin for peripheral neuropathy. 5. History of essential hypertension. Continue home metoprolol. H/o NIDDM: Continue Sliding scale insulin. 6. Anemia of chronic disease. Continue folic acid, currently stable. 7. Morbid obesity. The patient will be counseled about weight reduction. 8. Hypokalemia being repleted. 9. Disposition. I will transfer patient out of intensive care unit to step- down unit. Plan of care was discussed with her. All of her questions have been answered. cc: Marcelino Carballo MD MTDD
[2018-06-23] MEDS: POTASSIUM CHLORIDE 20 MEQ/SWI 20 MEQ/100 ML IVPB IV SCH ×2 (09:07→11:17)
[2018-06-23] MEDS: DUONEB (A & A) INH SCH ×2 (11:25→21:25)
[2018-06-23 14:01] LABS: HEMATOCRIT 22.6 % (37.0-47.0)
[2018-06-23] MEDS: PROTONIX IV SCH (17:17)
[2018-06-23] MEDS: LEVAQUIN 500 MG/D5W 500 MG/100 ML IVPB IV SCH (17:17)
[2018-06-23] MEDS: LIPITOR PO SCH (20:53)
[2018-06-23] MEDS: FOLIC ACID 1 MG in NS 50 ML IV SCH (22:11)
[2018-06-24] MEDS: DUONEB (A & A) INH SCH ×5 (03:22→21:00)
[2018-06-24 05:04] LABS: BASO# 0.02 X1000 (0.0-0.2); BASO% 0.3 % (0.0-0.8); EOS# 0.47 X1000 (0.0-0.7); EOS% 8.2 % (0.0-10.0); HEMATOCRIT 28.8 % (37.0-47.0); HEMOGLOBIN 10.4 g/dL (12.0-16.0); IMM GRAN# 0.04 X1000 (0.0-0.04); IMM GRAN% 0.7 % (0.0-0.5); LYMPH# 1.58 X1000 (1.2-3.4); LYMPH% 27.4 % (20.5-51.1); MCH 36.2 PG (27-31); MCHC 36.1 g/dL (33-37); MCV 100.3 FL (81-99); MONO# 0.76 X1000 (0.11-0.59); MONO% 13.2 % (1.7-9.3); MPV 10.5 FL (7.4-10.4); NEUT# 2.89 X1000 (1.4-6.5); NEUT% 50.2 % (42.2-75.2); PLT 336 X1000 (130-400); RBC 2.87 XMIL (4.2-5.4); RDW 16.7 % (11.5-14.5); WBC 5.76 X1000 (4.8-10.8)
[2018-06-24] MEDS: LOVENOX SUBQ SCH ×2 (05:09→16:41)
[2018-06-24] MEDS: ROCEPHIN 1 GM in NS 50 ML IV SCH (05:09)
[2018-06-24] MEDS ORDERED: BLISTEX MEDICATED BERRY LIP BALM TOP PRN (05:13)
[2018-06-24 05:23] LABS: ALLEN TEST YES; BLOOD TYPE ARTERIAL; HCO3-(ACT) 34.2 mmoll (20.0-26.0); O2(CT) 13.6 mL/dL (15.0-23.0); O2HB 90.4 % (95.0-99.0); PO2(98.6) 60 mmHg (60-100); SAMPLE BLOOD; SAO2 92.8 % (95.0-100.0); THB 10.7 g/dL (11.5-17.4); pH(98.6) 7.41 (7.35-7.45)
[2018-06-24 05:24] LABS: MODALITY CANNULA
[2018-06-24 05:26] LABS: PCO2(98.6) 61 mmHg (35-45)
[2018-06-24 05:36] LABS: CALCIUM 8.9 mg/dL (8.8-10.2); CREATININE 1.2 mg/dL (0.5-0.9); POTASSIUM 3.4 mmol/L (3.5-5.1)
[2018-06-24] MEDS ORDERED: KLOR-CON PO ONE ×2 (05:50→08:13)
[2018-06-24] MEDS: MAG-OX PO SCH ×4 (06:03→23:39)
[2018-06-24] MEDS: SYNTHROID PO SCH (06:06)
[2018-06-24] MEDS: HUMALOG SUBQ SCH ×4 (06:44→21:11)
--- NOTE | 2018-06-24 07:30 | Diag Imaging Result Doc PS360 ---
EXAM: CHEST-1 VIEW INDICATION: SOB TECHNIQUE: One view COMPARISON: 06/23/2018 FINDINGS: There is suggestion of mild interstitial edema that is essentially stable. There is stable elevation of the right hemidiaphragm. The retrocardiac opacity seen on the previous study appears to have improved. No new consolidation is identified. Cardiac silhouette is stable. IMPRESSION: Apparent improvement of retrocardiac opacity. Electronically signed by Titi Rodriguez 06/24/2018 7:28 AM
[2018-06-24] MEDS ORDERED: MAGNESIUM SULFATE 2 GM/S.W.I. 2 GM/50 ML IVPB IV SCH (08:15)
[2018-06-24] MEDS ORDERED: MAGNESIUM SULFATE 2 GM/S.W.I. 2 GM/50 ML IVPB IV ONE (08:15)
[2018-06-24] MEDS: TOPROL XL PO SCH (09:04)
[2018-06-24] MEDS: NEURONTIN PO SCH ×3 (09:04→21:05)
[2018-06-24] MEDS: ZYLOPRIM PO SCH (09:04)
[2018-06-24] MEDS: LASIX IV SCH ×2 (09:04→21:05)
[2018-06-24] MEDS: FOLIC ACID PO SCH (09:12)
[2018-06-24] MEDS: MORPHINE IV PRN (10:54)
--- NOTE | 2018-06-24 11:20 | PROGRESS NOTE ---
DATE: 06/24/2018 OVERNIGHT EVENTS: The patient was transferred from ICU to stepdown unit. Since then, she has been doing fine. SUBJECTIVE: Today, Physical Therapy helped patient come out of bed and sit in the chair which she tolerated okay. She, however, was feeling weak. The patient's daughter is at bedside. Plan of care was discussed with her. All of her questions have been answered. The patient denies chest pain or feeling short of breath. I discussed about her hospital course and answered all of her questions. OBJECTIVE: Vital signs: Temperature 98, pulse 82, blood pressure 145/77, saturating 96% on 3-4 L nasal cannula. Input and output suggest negative 2 L yesterday. Since admission, she is negative 5 L. General: Does not appear in any acute distress. The patient does appear morbidly obese, though. HEENT: Oral cavity moist. Respiratory: Air entry bilaterally equal with inspiratory crackles, bilateral infrascapular region, improved from yesterday. No wheeze. Cardiovascular: S1, S2 normal, no murmur, rub, or gallop. Abdomen: Soft, nontender. Extremities: No lower extremity edema. However, mild tenderness in bilateral lower extremities. Neurologic: Alert and oriented x3. Power is 4/5 in bilateral upper and lower extremities without any obvious facial droop. LABS TODAY: Suggestive of hemoglobin, hematocrit, WBC, and platelet count in acceptable range. What appears to be chronic hypercarbic respiratory failure, hypokalemia, chronic kidney disease stage 3, and hypomagnesemia. IMAGING: Chest x-ray suggests improvement in retrocardiac opacity. ASSESSMENT AND PLAN: 1. Acute hypoxic hypercarbic respiratory failure due to flash pulmonary edema of uncertain etiology and suspected left lower lobe pneumonia, which prompted transfer from [place] to [facility] requiring intubation, now status post extubation since June 21. Echocardiogram without any evidence of congestive heart failure though she did have elevated proBNP. CT angiography did not detect pulmonary embolism though did have lower extremity DVT. Continue intravenous Lasix, intravenous levofloxacin and ceftriaxone which were started. I will stop ceftriaxone today. Continue oxygenation to maintain saturation more than 94% and nighttime CPAP considering her chronic hypercarbic respiratory failure. She should get outpatient pulmonary evaluation for sleep apnea. 2. Acute kidney injury on chronic kidney disease stage 3, appears to be stable. 3. Acute deep vein thrombosis of left posterior tibial vein. Continue enoxaparin subcutaneous therapeutic dose. Transition to oral form as tolerated. 4. History of hypothyroidism, hyperlipidemia, and gout. Continue home levothyroxine, atorvastatin, allopurinol. Continue home gabapentin for peripheral neuropathy. 5. History of essential hypertension and [id number] diabetes mellitus. Continue home metoprolol and sliding scale insulin. 6. Anemia of chronic disease. Continue folic acid. Currently stable. 7. Morbid obesity. The patient was counseled about weight reduction. 8. Hypokalemia, hypomagnesemia, being repleted. 9. Disposition: The patient remains in [facility] for monitoring of her respiratory status. The eventual plan would be to transfer patient to rehab. Social Work/Rehab has consulted on the case. I anticipate discharge early next week. Plan of care was discussed with patient's daughter at bedside who is surrogate decision maker. All of their questions have been answered. cc: Marcelino Carballo MD MTDD
[2018-06-24] MEDS: LEVAQUIN 500 MG/D5W 500 MG/100 ML IVPB IV SCH (16:40)
[2018-06-24] MEDS: PROTONIX IV SCH (16:41)
[2018-06-24] MEDS: LIPITOR PO SCH (21:05)
--- NOTE | 2018-06-24 22:54 | PULMONOLOGY PROGRESS NOTE ---
DATE: 06/24/2018 SUBJECTIVE: Patient is sitting in a chair. She is awake, alert and conversant. OBJECTIVE: The patient has been afebrile the last 24 hours. Blood pressure 144/77, heart rate 71, respiratory rate 16, oxygen saturation 96% on 2 L per nasal cannula.HEENT: Pupils are equal and reactive. Oropharynx is clear. Neck: Is supple. Chest: Reveals crackles in the lung bases. Cardiac: S1-S2. Abdomen: Obese and soft. Extremities: Revealed trace to 1+ peripheral edema. LABORATORIES: Chest x-ray reveals mild vascular congestion. Arterial blood gas reveals pH 7.41, pCO2 of 61, PO2 of 60. White blood count 5.76, hemoglobin 10.4, platelet count 336,000. Chemistry. Sodium 134, potassium 3.4, chloride 94, bicarbonate 34, BUN 40, creatinine 1.2. IMPRESSION: 77-year-old with obesity, acute hypoxemic and acute hypercapnic respiratory failure who was admitted to the hospital and required intubation and mechanical ventilation. She appears to have diuresed several liters with improvement in pulmonary status. RECOMMENDATION: 1. Attempt to balance intake and output. Patient's BUN is starting decline and she may be limited on the amount of additional diuresis she will tolerate. 2. Continue oxygen for hypoxemic respiratory failure. 3. Continue anticoagulation for deep vein thrombosis. 4. Recommend outpatient sleep evaluation to prevent possible readmission in the future. 5. Recommend transitioning patient to oral anticoagulation or initiation of Coumadin depending on clinical plan. cc: Varghese Maki MD
[2018-06-25] MEDS: DUONEB (A & A) INH SCH ×4 (03:47→21:08)
[2018-06-25] MEDS: ROCEPHIN 1 GM in NS 50 ML IV SCH (05:02)
[2018-06-25] MEDS: LOVENOX SUBQ SCH ×2 (05:03→17:58)
[2018-06-25 06:05] LABS: ALLEN TEST YES; BE 12.6 mmoll (-3.0-3.0); BLOOD TYPE ARTERIAL; HCO3-(ACT) 34.7 mmoll (20.0-26.0); METHB 1.1 % (0.0-1.5); O2(CT) 14.5 mL/dL (15.0-23.0); O2HB 93.4 % (95.0-99.0); PO2(98.6) 71 mmHg (60-100); SAMPLE BLOOD; SAO2 95.9 % (95.0-100.0); pH(98.6) 7.44 (7.35-7.45)
[2018-06-25 06:07] LABS: MODALITY CANNULA
[2018-06-25 06:08] LABS: PCO2(98.6) 57 mmHg (35-45)
[2018-06-25] MEDS: HUMALOG SUBQ SCH ×4 (06:20→22:01)
[2018-06-25] MEDS: SYNTHROID PO SCH (06:21)
[2018-06-25] MEDS: MAG-OX PO SCH ×4 (06:22→23:05)
[2018-06-25 07:51] LABS: CALCIUM 9.4 mg/dL (8.8-10.2); CREATININE 1.4 mg/dL (0.5-0.9); POTASSIUM 3.6 mmol/L (3.5-5.1)
--- NOTE | 2018-06-25 08:14 | Diag Imaging Result Doc PS360 ---
EXAM: CHEST-1 VIEW HISTORY: SOB TECHNIQUE: Portable chest COMPARISON: 06/24/2018 FINDINGS: Poor inspiratory effort. Heart is borderline mildly prominent. No pleural effusions identified. There are central vascular distention. IMPRESSION: No interval improvement. Electronically signed by Yaron Arshad 06/25/2018 8:11 AM
[2018-06-25] MEDS: TOPROL XL PO SCH (09:28)
[2018-06-25] MEDS: LASIX IV SCH (09:28)
[2018-06-25] MEDS: FOLIC ACID PO SCH (09:28)
[2018-06-25] MEDS: NEURONTIN PO SCH ×3 (09:28→22:03)
[2018-06-25] MEDS: ZYLOPRIM PO SCH (09:28)
[2018-06-25] MEDS: LEVAQUIN 500 MG/D5W 500 MG/100 ML IVPB IV SCH (17:58)
[2018-06-25] MEDS: SODIUM CHLORIDE 0.9% INJ SCH (17:59)
[2018-06-25] MEDS: PROTONIX IV SCH (17:59)
--- NOTE | 2018-06-25 20:11 | PROGRESS NOTE ---
DATE: 06/25/2018 Overnight no acute events. SUBJECTIVE: She is denies new complaints. She thinks she is feeling better. She was able to come out of bed however she was very weak, she denies new cough . OBJECTIVE: Vital signs: Temperature 98.5 degrees, pulse 95 per minutes , blood pressure 125/70, saturating 97% on 4 L nasal cannula. Does not appear in any acute distress appears morbidly obese. Oral cavity moist. Air entry bilaterally equal with bilateral infrascapular inspiratory crackles, no wheeze or rhonchi. S1, S2 normal. No murmur or gallop. Abdomen soft, nontender. No lower extremity edema except tenderness in bilateral lower extremities because of peripheral neuropathy . Neurologic. Alert, oriented x3. LABS: Suggestive of acute kidney injury with a drop in her GFR. ASSESSMENT AND PLAN: 1. Acute hypoxic hypercarbic respiratory failure due to flash pulmonary edema of uncertain etiology, suspected left lower lobe pneumonia and suspected undiagnosed sleep apnea which prompted transfer to [facility] requiring intubation now status post extubation since June 21. Echocardiogram did not suggest any evidence of congestive heart failure except elevated proBNP though she had left lower extremity deep vein thrombosis, CT angiography did not detect pulmonary embolism. Stop intravenous Lasix as she appears to have reached maximum diuresis, continue intravenous levofloxacin for pneumonia. Ceftriaxone has been stopped. Continue oxygenation to maintain saturation more than 94% nighttime CPAP considering her chronic hypercarbic respiratory failure, outpatient sleep evaluation for sleep apnea. 2. Acute kidney injury on what appears to be chronic kidney disease stage 3, stop Lasix, followup BMP tomorrow . 3. Acute deep vein thrombosis of left posterior tibial vein, change enoxaparin to apixaban. 4. History of hypothyroidism, hyperlipidemia and gout. Continue home levothyroxine, atorvastatin, allopurinol, continue gabapentin for peripheral neuropathy. 5. History of essential hypertension and [id number]-jbifiumlm diabetes mellitus. Continue home metoprolol, sliding scale insulin. 6. Anemia of chronic disease, continue folic acid. 7. Disposition. Patient remains inside the hospital. Social work rehab consult has been placed, if she continues to remain better plan is to discharge her to rehab early next week. Plan of care was discussed with her and her daughter at bedside who is surrogate decision maker, all of the questions have been answered . cc: Marcelino Carballo MD
--- NOTE | 2018-06-25 20:49 | PULMONOLOGY PROGRESS NOTE ---
DATE: 06/25/2018 SUBJECTIVE: The patient reports she feels a little bit better. She has occasional sputum production which has not changed in consistency or amount. She reports her breathing is marginally improved. OBJECTIVE: The patient has been afebrile for the last 24 hours. Blood pressure 125/70, heart rate 75, respiratory rate 17, oxygen saturation 94% on 4 L per nasal cannula.HEENT: Pupils are equal and reactive. Oropharynx is clear. Neck: Is supple. Chest: Reveals occasional rhonchi bilaterally with shallow breath sounds. Cardiac: S1-S2. Abdomen: Obese and soft. Extremities: Reveal trace to 1+ peripheral edema. LABORATORIES: Chest x-ray reveals shallow inspiration with generous cardiac silhouette with central vascular congestion. Arterial blood gas reveals a pH 7.44, pCO2 of 57, PO2 of 71 on nasal cannula. Sodium 140, potassium 3.6, chloride 93, bicarbonate 33, BUN 41, creatinine 1.4. IMPRESSION: A 77-year-old with obesity, acute hypoxemic and acute hypercapnic respiratory failure, pulmonary edema with continued improvement. The patient also has a bronchitis. RECOMMENDATIONS: 1. Continue diuresis as tolerated. She is having an increase in her BUN and creatinine after diuresis and her Lasix may need to be decreased. 2. Continue oxygen for hypoxemic respiratory failure. 3. Continue anticoagulation. 4. Recommend outpatient sleep evaluation. 5. Recommend initiation of oral anticoagulation for deep vein thrombosis. 6. Follow-up chest x-ray tomorrow morning. cc: Varghese Maki MD
[2018-06-25] MEDS ORDERED: ELIQUIS PO SCH (21:00)
[2018-06-25] MEDS: MORPHINE IV PRN (22:02)
[2018-06-25] MEDS: LIPITOR PO SCH (22:03)
[2018-06-26] MEDS: DUONEB (A & A) INH SCH ×4 (03:30→23:10)
[2018-06-26] MEDS: MAG-OX PO SCH ×3 (06:20→19:41)
[2018-06-26] MEDS: HUMALOG SUBQ SCH ×4 (06:20→22:06)
[2018-06-26] MEDS: SYNTHROID PO SCH (06:20)
[2018-06-26 07:43] LABS: CALCIUM 8.5 mg/dL (8.8-10.2); CREATININE 1.4 mg/dL (0.5-0.9); POTASSIUM 3.5 mmol/L (3.5-5.1)
[2018-06-26 08:05] LABS: BASO# 0.02 X1000 (0.0-0.2); BASO% 0.3 % (0.0-0.8); EOS# 0.37 X1000 (0.0-0.7); EOS% 5.4 % (0.0-10.0); HEMOGLOBIN 10.2 g/dL (12.0-16.0); IMM GRAN% 1.5 % (0.0-0.5); LYMPH# 1.35 X1000 (1.2-3.4); LYMPH% 19.8 % (20.5-51.1); MCH 29.9 PG (27-31); MCHC 31.9 g/dL (33-37); MCV 93.8 FL (81-99); MONO# 0.92 X1000 (0.11-0.59); MONO% 13.5 % (1.7-9.3); MPV 10.5 FL (7.4-10.4); NEUT# 4.06 X1000 (1.4-6.5); NEUT% 59.5 % (42.2-75.2); PLT 283 X1000 (130-400); RBC 3.41 XMIL (4.2-5.4); RDW 13.8 % (11.5-14.5); WBC 6.82 X1000 (4.8-10.8)
--- NOTE | 2018-06-26 08:07 | Diag Imaging Result Doc PS360 ---
EXAM: CHEST-1 VIEW - 06/26/2018 HISTORY: SOB TECHNIQUE: Portable chest COMPARISON: 06/25/2018 FINDINGS: Heart size appears upper normal. There are ill-defined mild infiltrates or atelectasis at the bilateral lung bases. There is a possible small left pleural effusion. There is no pneumothorax identified. IMPRESSION: Ill-defined mild bibasilar infiltrates or atelectasis. Electronically signed by Chance Mortensen 06/26/2018 8:04 AM
[2018-06-26] MEDS: ZYLOPRIM PO SCH (10:13)
[2018-06-26] MEDS: TOPROL XL PO SCH (10:13)
[2018-06-26] MEDS: NEURONTIN PO SCH ×3 (10:13→22:06)
[2018-06-26] MEDS: ELIQUIS PO SCH ×2 (10:14→22:05)
[2018-06-26] MEDS: FOLIC ACID PO SCH (10:14)
[2018-06-26] MEDS: MORPHINE IV PRN (10:52)
[2018-06-26] MEDS: MIRALAX PO SCH ×2 (16:29→22:05)
[2018-06-26] MEDS: SODIUM CHLORIDE 0.9% INJ SCH (16:31)
[2018-06-26] MEDS: LEVAQUIN 500 MG/D5W 500 MG/100 ML IVPB IV SCH (16:31)
[2018-06-26] MEDS: PROTONIX IV SCH (16:31)
[2018-06-26] MEDS ORDERED: TYLENOL PO PRN (17:32)
--- NOTE | 2018-06-26 18:47 | PROGRESS NOTE ---
DATE: 06/26/2018 OVERNIGHT INTERVAL HISTORY: No acute events. Patient denies chest pain, shortness of breath. She still has not had a bowel movement. Denies abdominal pain, though. The patient's daughter is at bedside. Plan of care discussed with her. VITAL SIGNS: Temperature 97.7, pulse 74, blood pressure 110/63, saturating 93% 2 L nasal cannula. PHYSICAL EXAMINATION: General: Appears morbidly obese. Does not appear in any acute distress. HEENT: Oral cavity moist. Respiratory: Air entry bilaterally equal with infrascapular inspiratory crackles bilaterally. Cardiovascular: S1, S2 normal. No murmur, rub or gallop. Abdomen: Soft, nontender. Extremities: Bilateral lower extremity tenderness without edema. Neurologic: Alert and oriented x 3. LABS: Suggestive of no leukocytosis. Stable hemoglobin, hematocrit and platelet count. BMP suggestive of chronic kidney disease stage 3. ASSESSMENT AND PLAN: 1. Acute hypoxic and hypercarbic respiratory failure due to flash pulmonary edema of uncertain etiology, suspected left lower lobe pneumonia, suspected undiagnosed sleep apnea which prompted transfer to [facility] requiring intubation, now status post extubation on June 21. Echo did not suggest evidence of congestive heart failure, except elevated proBNP, though she had left lower extremity DVT. CT angiography did not detect PE. Continue intravenous levofloxacin for pneumonia. Continue oxygen to maintain saturation more than 94%. Nighttime CPAP for suspected obstructive sleep apnea. She should get outpatient sleep evaluation. 2. Acute kidney injury on what appears to be chronic kidney disease stage 3, stable. Follow up with frequent BMP. 3. Acute DVT of left posterior tibial vein. Continue apixaban. 4. History of hypothyroidism, hyperlipidemia and gout. Continue home levothyroxine, atorvastatin, allopurinol. Continue gabapentin for peripheral neuropathy. 5. History of essential hypertension and ofd-bqbhswq-qyqjasfyx diabetes mellitus. Continue decreased dose of home metoprolol and sliding scale insulin. 6. Anemia of chronic disease. Continue folic acid. 7. Disposition: Patient remains inside the hospital. Awaiting rehab bed. Once a bed becomes available, my plan is to discharge her. Plan is discussed with the patient's daughter at bedside. All of her questions have been answered. cc: Marcelino Carballo MD
--- NOTE | 2018-06-26 20:26 | PULMONOLOGY PROGRESS NOTE ---
DATE: 06/26/2018 SUBJECTIVE: The patient continues to have some cough, but reports she feels significantly better than on admission. OBJECTIVE: Vital Signs: The patient has been afebrile for the last 24 hours. Blood pressure 109/63, heart rate 74, respiratory rate 18, oxygen saturation 93% on 2 L per nasal cannula. HEENT: Pupils are equal and reactive. Oropharynx is clear. Neck: Supple. Chest: Reveals crackles in the lung bases. Cardiac: S1-S2. Abdomen: Soft, without hepatosplenomegaly. Extremities: Revealed decreased edema. LABORATORIES: Chest x-ray reveals small left-sided pleural effusion, with nonspecific infiltrates in the bases. IMPRESSION: A 77-year-old with morbid obesity, acute hypoxemic and hypercapnic respiratory failure, pleural effusions, pulmonary edema, with continued improvement. The patient has bronchitis, which appears to be improving. The patient has acute deep vein thrombosis, and her Lovenox has been switched to Eliquis. RECOMMENDATIONS: 1. Lasix has been held. Continue to balance intake and output if possible. 2. Continue oxygen for hypoxemic respiratory failure. 3. Agree with current anticoagulation for deep vein thrombosis. 4. Recommend outpatient sleep evaluation to prevent readmission in the future. cc: Varghese Maki MD
--- NOTE | 2018-06-26 20:54 | Diag Imaging Result Doc PS360 ---
EXAM: US RENAL 2 (RETROPER) COMPLETE - 06/26/2018 HISTORY: CKD TECHNIQUE: Bilateral renal ultrasound COMPARISON: None. FINDINGS: The right kidney measures 11 x 5.5 x 5 cm in size. The left kidney measures 10.1 x 5.1 x 6 cm in size. There is no renal mass, stone, or hydronephrosis identified. Images of the urinary bladder show no discrete lesion. IMPRESSION: No visible renal abnormality. No hydronephrosis. Electronically signed by Chance Mortensen 06/26/2018 8:51 PM
[2018-06-26] MEDS: LIPITOR PO SCH (22:05)
[2018-06-27] MEDS: MAG-OX PO SCH ×4 (00:44→17:00)
[2018-06-27] MEDS: DUONEB (A & A) INH SCH ×4 (03:31→23:20)
[2018-06-27] MEDS: SYNTHROID PO SCH ×2 (05:42→06:06)
[2018-06-27] MEDS: HUMALOG SUBQ SCH ×4 (06:06→21:52)
[2018-06-27 07:49] LABS: CALCIUM 8.9 mg/dL (8.8-10.2); CREATININE 1.3 mg/dL (0.5-0.9); POTASSIUM 3.6 mmol/L (3.5-5.1)
[2018-06-27] MEDS: MIRALAX PO SCH ×2 (08:40→21:51)
[2018-06-27] MEDS: ELIQUIS PO SCH ×2 (08:40→21:51)
[2018-06-27] MEDS: FOLIC ACID PO SCH (08:40)
[2018-06-27] MEDS: NEURONTIN PO SCH ×3 (08:40→21:50)
[2018-06-27] MEDS: ZYLOPRIM PO SCH (08:40)
[2018-06-27] MEDS: TOPROL XL PO SCH (08:40)
[2018-06-27] MEDS: SODIUM CHLORIDE 0.9% INJ SCH (17:00)
[2018-06-27] MEDS: PROTONIX IV SCH (17:00)
[2018-06-27] MEDS: LEVAQUIN 500 MG/D5W 500 MG/100 ML IVPB IV SCH (17:00)
--- NOTE | 2018-06-27 18:01 | PROGRESS NOTE ---
DATE: 06/27/2018 INTERVAL EVENTS: The patient had urinary retention and has 2 times required straight catheterization. She has not had a bowel movement. SUBJECTIVE: Patient denies chest pain, shortness of breath. She was able to walk out of bed, out of the room and come back with support from physical therapy. The patient currently denies chest pain, shortness of breath or abdominal pain. OBJECTIVE: Vital Signs: Temperature 98.1 degrees, pulse 85, blood pressure 130/69, saturating 95% nasal cannula. General: Sleeping in the bed. Does not appear in acute distress. Lungs: Air entry bilaterally equal. Infrascapular, inspiratory crackles bilaterally. Heart: S1, S2 normal. No murmur, rub or gallop. Abdomen: Soft, nontender. Extremities: Bilateral lower extremity tenderness without edema. Neurologic: Alert oriented x3. LABORATORY DATA: Today, suggestive of improving kidney function. ASSESSMENT AND PLAN: 1. Acute hypoxic and acute hypercarbic respiratory failure due to flash pulmonary edema, suspected left lower lobe pneumonia, suspected undiagnosed sleep apnea, which prompted transfer to [facility] from [place] requiring intubation initially. She is status post extubation since June 21. Echo did not suggest evidence of CHF, though she has elevated proBNP. She had left lower extremity deep venous thrombosis without any pulmonary embolism. Continue intravenous levofloxacin for pneumonia and oxygenation to maintain saturation more than 94%, nighttime CPAP for suspected obstructive sleep apnea. 2. Acute kidney injury or appears to be chronic kidney disease stage 3, stable. Outpatient nephrology followup. 3. Acute deep venous thrombosis of left posterior tibial vein. Continue apixaban. 4. History of hypothyroidism, hyperlipidemia, and gout. Continue home levothyroxine, atorvastatin, allopurinol, respectively. Continue gabapentin for peripheral neuropathy. 5. History of essential hypertension, noninsulin-dependent diabetes mellitus, and anemia of chronic disease. Continue home metoprolol at a decreased dose, sliding scale insulin and folic acid. 6. Disposition: The patient had urine retention and has not had a bowel movement. My plan is to give frequent straight catheterizations or possibly Jones catheterization overnight and multiple stool softeners. If she is able to have a bowel movement and does not have urine retention and chest x-ray tomorrow suggests improvement, my plan is to discharge her to rehab tomorrow. Plan of care were discussed with her and her grandson at bedside. All of their questions have been answered. cc: Marcelino Carballo MD
[2018-06-27] MEDS: LACTULOSE PO SCH ×2 (18:20→21:57)
[2018-06-27] MEDS: DULCOLAX PR SCH (18:20)
[2018-06-27] MEDS: LIPITOR PO SCH (21:50)
[2018-06-28] MEDS: MAG-OX PO SCH ×3 (02:20→12:34)
[2018-06-28] MEDS: DUONEB (A & A) INH SCH ×3 (04:02→15:24)
[2018-06-28] MEDS: HUMALOG SUBQ SCH ×3 (06:21→16:13)
[2018-06-28] MEDS: SYNTHROID PO SCH (06:38)
--- NOTE | 2018-06-28 07:30 | Diag Imaging Result Doc PS360 ---
CHEST-1 VIEW - 06/28/2018 INDICATION: SOB COMPARISON: 06/26/2018 FINDINGS: There is some faint atelectasis in the lung bases. The lungs are clear. Heart size is normal. No pneumothorax or pleural effusion. IMPRESSION: Faint atelectasis in the lung bases but no acute disease. Electronically signed by Stanislav Gamez 06/28/2018 7:27 AM
[2018-06-28 07:56] LABS: CALCIUM 9.2 mg/dL (8.8-10.2); CREATININE 1.3 mg/dL (0.5-0.9); POTASSIUM 3.6 mmol/L (3.5-5.1)
[2018-06-28 07:57] VITALS: BP 114/56
[2018-06-28] MEDS ORDERED: LASIX PO SCH (09:00)
[2018-06-28] MEDS: TOPROL XL PO SCH (09:48)
[2018-06-28] MEDS: LACTULOSE PO SCH ×2 (09:48→10:01)
[2018-06-28] MEDS: NEURONTIN PO SCH ×2 (09:48→16:13)
[2018-06-28] MEDS: ELIQUIS PO SCH (09:49)
[2018-06-28] MEDS: FOLIC ACID PO SCH (09:49)
[2018-06-28] MEDS: DULCOLAX PR SCH ×2 (09:49→10:01)
[2018-06-28] MEDS: ZYLOPRIM PO SCH (09:49)
[2018-06-28] MEDS: MIRALAX PO SCH (09:49)
[2018-06-28] MEDS ORDERED: NON-FORMULARY INJ IM ONE (12:15)
--- NOTE | 2018-06-28 13:13 | PROGRESS NOTE ---
DATE: 06/28/2018 SUBJECTIVE: I evaluated the patient myself today. The patient is denying chest pain or shortness of breath. I have asked the nurse to have the patient cough up and recheck the saturation. She is denying feeling shortness of breath. We discussed about discharge planning, chest x-ray finding, and I answered all of her questions. I counseled her about following up with repeat blood tests and Nephrology, sleep study evaluation, and answered all of her questions. OBJECTIVE: Vital Signs: Temperature 98.8, pulse 78 per minute, respiratory rate 18 per minute, blood pressure 114/56. Repeat SpO2 is 96% on 2 L. General: She does not appear in acute distress. HEENT: Oral cavity is moist. Lungs: Air entry bilaterally equal. No wheeze or rhonchi. Mild inspiratory crackles bilateral bases. Heart: S1, S2 normal. No murmur or gallop. Abdomen: Soft, nontender. Extremities: No edema. Neurologic: Alert and oriented x3. LABORATORY DATA: Lab data today suggestive of acceptable range of BMP, and BUN and creatinine which are improving. ASSESSMENT: 1. Acute hypoxic and hypercarbic respiratory failure. 2. Acute kidney injury. 3. Acute deep venous thrombosis of left posterior tibial vein. 4. Hypothyroidism. 5. Essential hypertension. PLAN: The patient has completed a course of antibiotics. She should go to rehab for physical deconditioning and she should get a repeat CBC and CMP done within 3 days to make sure her kidney function is improving. Based on her breathing status, she should get Lasix dosing as well. She should get outpatient Pulmonology and sleep evaluation, and kidney doctor evaluation. Plan of care was discussed with her. All of her questions have been answered. cc: Marcelino Carballo MD
--- NOTE | 2018-06-28 14:51 | DISCHARGE SUMMARY ---
ADMISSION DATE: 06/17/2018 DISCHARGE DATE: 06/28/2018 CONSULTATIONS: Dr. Cuenca of Pulmonology. PERTINENT PROCEDURES: 1. Head CT showed no visible acute intracranial abnormality. 2. Initial chest x-ray was a negative exam. The lungs were normally expanded and clear. Heart size and mediastinal contours are normal. No pneumothorax or pleural effusion identified. 3. Echocardiogram showed an EF of 55%; mild insufficiency across the aortic valve; minimal aortic stenosis. 4. Followup chest x-ray showed development of pulmonary edema and/or interstitial pneumonitis/pneumonia, most prominent on the right. 5. Pulmonary arteriogram negative for PE; cardiomegaly; pulmonary edema; small pleural effusions. 6. Bilateral venous Doppler showed acute DVT in the left posterior tibial vein. 7. Renal ultrasound showed no evidence of renal abnormality; no hydronephrosis. DISCHARGE DIAGNOSES: 1. Acute hypoxemic and acute hypercarbic respiratory failure secondary to flash pulmonary edema. Suspected left lower lobe pneumonia. Suspected undiagnosed sleep apnea. This prompted a transfer to [facility] from [place] after she required intubation. She is status post extubation since 06/21/2018. Echocardiogram did not suggest evidence of congestive heart failure, even though she had an elevated proBNP. She was found to have a lower extremity deep venous thrombosis without any pulmonary embolus. She was continued on intravenous antibiotics for pneumonia as well as nighttime CPAP for suspected obstructive sleep apnea. This has improved. 2. Acute kidney injury, or appears to be chronic stage 3, stable. 3. Acute deep venous thrombosis of the left posterior tibial vein. The patient will continue on apixaban. 4. History of hypothyroidism. Continue Synthroid. 5. Hyperlipidemia. Continue statin. 6. Gout. Continue home medications. HOSPITAL COURSE: Briefly, Ms. Galeas is a 77-year-old female who presented to [facility] with complaints of generalized weakness. She felt that she had food poisoning for three days, nausea, vomiting, and diarrhea. She was unable to pull herself up and walk due to the weakness. When she arrived in the emergency room she had a white count of 14. Her BUN was 27 with creatinine of 1.7. Her TSH level was 0.03. She has a known history of hypothyroidism and takes Synthroid. In the emergency room she was given a liter of normal saline and one gram of IV Rocephin. Her urinalysis was clear except for 1+ bacteria. Urine drug screen was negative. She was initially admitted for generalized weakness secondary to previous gastroenteritis, prior to arriving leukocytosis that was mostly reactive and acute kidney injury. She was placed on the medical floor on telemetry and supplemental O2. Initially, was going to have physical therapy to evaluate her, however some time during the night she had an episode of flash pulmonary edema and required intubation and was transferred over to [facility]. We completed a pulmonary arteriogram that was negative for PE, however her venous Doppler was positive for an acute left DVT to the posterior tibial vein. She was initiated on full dose Lovenox. Consulted Pulmonology. She did briefly require pressors for her blood pressure. She was given IV antibiotics for probable pneumonia. She was quickly weaned and extubated the same day of her transfer. They suspect this was secondary to her undiagnosed obstructive sleep apnea. We do recommend an outpatient sleep evaluation to prevent possible readmissions in the future. She was transitioned to oral anticoagulation with apixaban. She has been diuresed several liters with improvement in her pulmonary status. She has been working with physical therapy and has been accepted to [facility]. She will be discharged there today. VITAL SIGNS: At time of her discharge, temperature is 98.8, axillary, heart rate 77, respirations 18, blood pressure 114/56, O2 is 96% on 2 L nasal cannula. DISCHARGE DIET: Diabetic. DISCHARGE MEDICATIONS: 1. Atorvastatin calcium 20 mg p.o. at bedtime. 2. Allopurinol 100 mg p.o. daily. 3. Gabapentin 600 mg p.o. t.i.d. 4. Synthroid 137 mcg p.o. daily. 5. Toprol XL 100 mg p.o. daily. 6. Actos 30 mg p.o. daily. 7. Eliquis 10 mg p.o. b.i.d. for 10 more doses, then the patient will start 5 mg b.i.d. 8. Dulcolax suppository 10 mg MN daily. 9. Folic acid 1 mg p.o. daily. 10.MiraLAX 17 grams p.o. b.i.d. FOLLOWUP: Ms. Galeas is being discharged to [facility] to continue with physical therapy. She will need to follow up on an outpatient basis for sleep study. She will continue taking her Eliquis as prescribed for her left lower extremity DVT as well as follow up with core winder for evaluation of her chronic kidney disease. She can return to the ED or call 911 for any worsening of symptoms. Dictated by JAMES Pedersen for Marcelino Carballo MD cc: MD Dinora Amador MD Mamoun I. Najjar, MD Dr. Mull I agree with above mentioned discharge summary. >30 minutes were spent in discharging this patient. On the discharge day, her vitals are within normal limits. She denies any chest pain. Plan is to discharge her to rehab. [facility]
--- NOTE | 2018-06-30 02:18 | HEMO/ONC CONSULTATION ---
DATE: 06/29/2018 REASON FOR CONSULTATION: The patient with history of acromegaly, currently on therapy with monthly Sandostatin, managed by Dr. Michelle Morales. HISTORY OF PRESENT ILLNESS: This patient was admitted to [facility] as a transfer from [place] secondary to respiratory failure in need of ventilator management. Again, she is a pleasant 77-year-old female known to Dr. Michelle Morales for a history of acromegaly on therapy with monthly Sandostatin. She also has a history of diabetes associated with diabetic neuropathy, gout, hyperlipidemia, hypothyroidism, hypertension and anemia. She presented to [place] [facility] on 06/17/2018 with acute generalized weakness and bilateral lower extremity pain after 3 days of symptoms felt related likely to food poisoning. She was admitted to [place] at that time for further evaluation and management. On the evening of 06/20/2018, she developed confusion, shortness of breath and wheezing associated with anxiety. She became unresponsive soon after and was intubated the morning of 06/21/2018 at 2:20 a.m. She did undergo imaging evaluation which revealed cardiomegaly, pulmonary edema and small pleural effusions with no evidence of pulmonary embolism at that time. Bilateral lower extremity venous Doppler did show acute DVT in the left posterior tibial vein. Lab findings revealed highly elevated D-dimer. She was transferred to [facility] at that time for further management. The patient is now extubated with a stable respiratory status, as well as return to baseline mentation. She is due for her monthly Sandostatin injection which was scheduled to be given at the [facility] as an outpatient visit today. Due to her hospitalization with plans to transfer at the time of discharge to inpatient rehab facility, we have been consulted to provide further recommendations regarding the plan of treatment prior to discharge. PAST MEDICAL HISTORY: 1. Acromegaly. 2. Diabetes. 3. Diabetic neuropathy. 4. Gout. 5. Hyperlipidemia. 6. Hypothyroidism. 7. Hypertension. 8. Anemia. 9. Morbid obesity. PAST SURGICAL HISTORY: Bilateral knee surgery, pituitary tumor removal, cholecystectomy and hysterectomy. SOCIAL HISTORY: Tobacco: Previous 1 pack per day for 25 years, cessation approximately 50 years ago. Alcohol: None. Illicit substance use: None. ALLERGIES: No known drug allergies. FAMILY HISTORY: Reviewed. REVIEW OF SYSTEMS: As per history of present illness. PHYSICAL EXAMINATION: Vital Signs: Afebrile. Vital signs stable. General: A chronically ill- appearing female in no acute distress. Seen while lying in the bed in her hospital room. HEENT: Atraumatic, normocephalic. PERRL. EOMI. Neck: Supple. Heart: S1, S2. Regular rate and rhythm. No murmur, gallop, or rub. Chest: Bilateral breath sounds. Clear to auscultation. Abdomen: Obese, soft, nondistended, nontender. Extremities: Right lower extremity with trace edema. No cyanosis, clubbing. Neurologic: Alert and oriented x3. ASSESSMENT AND PLAN: 1. Acromegaly. Management per Dr. Michelle Morales on monthly Sandostatin injection due for outpatient dosing today. We will make arrangements for the patient to receive Sandostatin during her hospitalization prior to discharge to rehabilitation. 2. Acute hypoxemic on chronic hypercapnic respiratory failure secondary to flash pulmonary edema and likely undiagnosed obesity related to chronic obstructive pulmonary disease and hyperventilation syndrome, improving. Management per primary team and Pulmonology. 3. Left lower extremity deep venous thrombosis maintained on anticoagulant therapy as directed. 4. Gout on allopurinol, stable and well controlled. Continue current regimen. 5. Neuropathy, stable and well controlled on Neurontin 600 mg t.i.d., maintain current dose. 6. Hypertension, stable and well controlled on current regimen. No changes at this time. 7. Continue gastrointestinal and deep venous thrombosis prophylaxis. Again thank you for the consultation on this patient known to Dr. Michelle Morales. We will continue to follow during her hospital stay, anticipating discharge to rehabilitation pending bed availability. Dictated by JAMES Escobedo for Michelle Morales MD cc: Michelle Morales MD
[2018-06-30 12:38] LABS: PCO2(98.6) 66 mmHg (35-45)
[2018-07-03] MEDS ORDERED: ELIQUIS PO SCH (09:00)
== END 2018-06-28 16:42 | DRG 682 ==
LOC: P.ED 21:40 → SUATTDRO 06-17 02:03 → P.MEDSURG 06-17 02:03 → P.ICU 06-21 02:13 → ICU 06-21 15:18 → 3S 06-23 14:54 → 3N 06-25 03:22
PROVIDERS: ATTEND Internal Medicine
CPT/HCPCS: 51702; 70450; 71010; 71045; 71275; 74000; 74018; 76770; 80048; 80053; 80104; 80301; 80305; 81001; 82607; 82746; 82805; 82948; 83036; 83540; 83550; 83615; 83735; 83880; 84132; 84439; 84443; 85025; 85379; 85610; 85730; 87070; 87088; 87205; 89220; 93005; 93010; 93306; 93970; 94002; 94003; 94640; 94761; 94799; 96361; 96365; 97110; 97162; 97530; 99285; A9270; C8929; C9113; G0431; G0434; G0477; J0330; J0696; J1650; J1815; J1940; J1956; J2250; J2270; J3475; J3480; J7030; Q9957; Q9967; S0164; XXXXX

== ENCOUNTER 2018-07-20 07:22 | Inpatient (IN) ==
--- NOTE | 2018-07-20 07:33 | PROVIDER DOCUMENTATION ---
HPI-Neurological Disorder - General Chief Complaint: Near Syncope Stated Complaint: NAUSEA/DIFFICULTY WALKING Time Seen by Provider: 07/20/18 07:25 Source: patient, EMS Allergies/Adverse Reactions: Patient Allergies Allergy/AdvReac Type Severity Reaction Status Date / Time No Known Allergies Allergy Verified 07/20/18 07:46 Home Medications: Home Medication List Medication Instructions Recorded Confirmed Last Taken Type Atorvastatin Calcium 20 mg PO QHS 02/14/18 06/17/18 Unknown History Levothyroxine [Synthroid] 137 mcg PO DAILY@0700 02/14/18 06/17/18 Unknown History Metoprolol Succinate E.r. [Toprol 100 mg PO DAILY 02/14/18 06/17/18 Unknown History Xl] Pioglitazone HCl 30 mg PO DAILY 02/14/18 06/17/18 Unknown History Allopurinol 100 mg PO DAILY 06/17/18 06/17/18 Unknown History Gabapentin 600 mg PO TID@0900,1500,2100 06/17/18 06/17/18 Unknown History Apixaban [Eliquis] 5 mg PO BID tablet 06/28/18 Unknown Rx Apixaban [Eliquis] 10 mg PO BID tablet 06/28/18 Unknown Rx Bisacodyl [Dulcolax] 10 mg IN DAILY supp 06/28/18 Unknown Rx Folic Acid 1 mg PO DAILY tablet 06/28/18 Unknown Rx Polyethylene Glycol 3350 [Miralax] 17 gm PO BID powder, packet 06/28/18 Unknown Rx - History of Present Illness-Neuro Nature of Presenting Problem: 77yo female, recently admitted for DVT and pneumonia, placed on eliquis and sent to rehab, awoke this morning with dizziness, light headedness and weakness. [place] like room was spinning. No fever/chills, slight nausea, no vomiting. States has not a "good bowel movement" in about 3 weeks. Denies blood in urine, stool, easy bruising. [facility] home health nurse yesterday thought she might have a UTI. SHe does have LAP and slight dysuria for a couple of days. Severity: reports: moderate Onset/Duration: reports: abrupt (on waking this morning), 1 hour ago Timing: reports: still present, improving, constant, changing over time Context: reports: other (weak and dizzy, room spinning) Approximate time patient was last seen normal?: 21:00 Character of Altered Mental Status: reports: N/A Any recent trauma/injury?: reports: none Character of Deficits: reports: new weakness, decreased ability to stand, decreased ability to walk New weakness or altered sensation location:: reports: general (diffuse) Cognitive Baseline: alert, oriented x3 Gait Baseline: uses a walker Associated Symptoms: reports: decreased ability to walk or stand, dizziness, nausea, trouble walking. denies: short of breath, headache, fainting, confusion , chest pain, neck/back pain, fatigue, fever/chills, insomnia, loss of consciousness, muscle spasms, numbness in legs/feet, paresthesia, diaphoretic, ringing in ears, seizures, sleepy, slurred speech, tingling in legs/feet, vomiting, vision changes, weakness Similar Symptoms Previously?: No Recently seen or treated by another doctor?: No Review of Systems - Adult - REVIEW OF SYSTEMS - ADULT Constitutional: reports: no symptoms reported Eyes: reports: no symptoms reported Ears, Nose, Mouth & Throat: reports: no symptoms reported Cardiovascular: reports: no symptoms reported Respiratory: reports: no symptoms reported Gastrointestinal: reports: no symptoms reported Genitourinary: reports: no symptoms reported Musculoskeletal: reports: no symptoms reported Integumentary: reports: no symptoms reported Neurological: reports: no symptoms reported Psychiatric: reports: no symptoms reported Endocrine: reports: no symptoms reported Hematologic/Lymphatic: reports: no symptoms reported Allergic/Immunologic: reports: no symptoms reported All Other Systems: Reviewed and Negative Past History - Adult - PAST MEDICAL HISTORY-ADULT Review of Records: reports: Old Records Reviewed, Nursing Assessment Review, Medications Reviewed, Social history reviewed & non-contributory. Major Childhood Illnesses: reports: denies history Cardiovascular: reports: blood clots (recent diagnosis, [facility] [place] a month or so ago), HTN Respiratory: reports: pneumonia Gastrointestinal: reports: denies history Obstetrical/Gynecological: reports: denies history Genitourinary: reports: chronic UTI's Musculoskeletal: reports: denies history Neurological: reports: denies history Endocrine/Immune: reports: denies history Diabetes Type: Type 2 Diabetes controlled by:: PO Meds Other Conditions: reports: denies history - PRIOR SURGERIES/PROCEDURES Surgical/Procedure History: reports: reviewed, not pertinent - IMMUNIZATION STATUS Childhood Immunizations: UTD Flu Vaccine: UTD - FAMILY HISTORY Family History: reviewed, not pertinent - SOCIAL HISTORY Smoking: non-smoker Substance Use: none/never Alcohol Use Frequency: never Living Situation: family Physical Exam- Neurological - Physical Exam-Neuro Initial Vital Signs Reviewed: Yes General Appearance: appears well, alert, no apparent distress Eye Exam: bilateral eye: PERRL, EOMI, other (conjunctiva pale) HENMT: normocephalic/atraumatic, normal ENT inspection, TMs normal. negative: moist mucous membranes (dry mucous membranes) Head Injury: no evidence of injury Neck: non-tender, full range of motion, supple, normal inspection Respiratory: chest non-tender, lungs clear, normal breath sounds, no pleuratic chest pain, no respiratory distress Cardiovascular: normal peripheral pulses, regular rate, rhythm, no edema, no gallop, no JVD Abdominal Exam: normal bowel sounds, soft, no organomegaly, no pulsatile mass, tenderness (suprapubic) Lymphatic: no adenopathy Extremity: normal range of motion, non-tender hazardous materials driver Exam: normal hearing, normal speech, PERRL Coordination/Gait: normal finger to nose, negative Romberg's sign, other (gait not tested) Motor/Sensory: no motor deficit, no sensory deficit, no pronator drift, negative Babinski's sign, positive Babinski's sign Neurologic: hazardous materials driver II-XII nml as tested, grossly normal, no motor/sensory deficits , abnormal cerebellar tests Integumentary: normal turgor, warm/dry, pallor Psych/Mental Status: normal mood/affect, normal thought content, normal thought process, oriented x 3 - Glascow Coma Scale Best Eye Response: (4) open spontaneously Best Verbal Response: (5) oriented Best Motor Response: (6) obeys commands Progress - PLAN OF CARE/RESULTS Progress/Plan/Lab Results: Vital Signs - 8 hr 07/20/18 07:31 07/20/18 07:39 07/20/18 07:41 Temperature 98.5 F Pulse Rate 68 67 65 Respiratory Rate 18 17 14 Blood Pressure 196/89 196/89 110/98 O2 Sat by Pulse Oximetry 100 100 99 07/20/18 08:00 07/20/18 08:02 07/20/18 09:00 Temperature Pulse Rate 67 65 66 Respiratory Rate Blood Pressure 185/100 185/100 O2 Sat by Pulse Oximetry 99 99 99 07/20/18 10:02 Temperature Pulse Rate Respiratory Rate Blood Pressure 193/90 O2 Sat by Pulse Oximetry 100 07/20/18 08:14 Influenza Screen - Final Nasopharyngeal 07/20/18 08:09 Stool Occult Blood (ELIZABETH) - Final Stool Laboratory Results - last 24 hr 07/20/18 07/20/18 07/20/18 07:33 07:34 07:34 WBC 6.73 RBC 3.19 L Hgb 9.5 L Hct 30.2 L MCV 94.7 MCH 29.8 MCHC 31.5 L RDW Std Deviation 12.9 Plt Count 297 MPV 11.2 H Immature Gran % (Auto) 0.0 Neut % (Auto) 62.5 Lymph % (Auto) 20.1 L Hettinger % (Auto) 10.3 H Eos % (Auto) 6.8 Baso % (Auto) 0.3 Immature Gran # (Auto) 0.00 Neut # (Auto) 4.21 Lymph # (Auto) 1.35 Hettinger # (Auto) 0.69 H Eos # (Auto) 0.46 Baso # (Auto) 0.02 PT INR PTT (Actin FS) Sodium Potassium Chloride Carbon Dioxide Anion Gap BUN Creatinine Estimated GFR/1.73 m2 BUN/Creatinine Ratio Glucose POC Glucose 73 Calculated Osmolality Calcium Magnesium Total Bilirubin AST ALT Alkaline Phosphatase Creatine Kinase Troponin T Qvg-A-Lhcxctgstar Pept Total Protein Albumin Globulin Albumin/Globulin Ratio Lipase Plasma Lactate TSH 0.02 L Urine Source Urine Color Urine Turbidity Urine pH Ur Specific [place] Urine Protein Ur Glucose (Stick) Ur Ketones (Stick) Urine Blood Urine Nitrite Urine Bilirubin Urobilinogen Dipstick Urine Leukocytes Urine WBC (Auto) Urine RBC (Auto) U Epithel Cells (Auto) Urine Bacteria (Auto) Urine Crystals Small Round Cells Urine Casts Urine Yeast-like Cells Blood Type Antibody Screen 07/20/18 07/20/18 07/20/18 07:34 07:34 07:34 WBC RBC Hgb Hct MCV MCH MCHC RDW Std Deviation Plt Count MPV Immature Gran % (Auto) Neut % (Auto) Lymph % (Auto) Hettinger % (Auto) Eos % (Auto) Baso % (Auto) Immature Gran # (Auto) Neut # (Auto) Lymph # (Auto) Hettinger # (Auto) Eos # (Auto) Baso # (Auto) PT INR PTT (Actin FS) Sodium 141 Potassium 3.8 Chloride 95 L Carbon Dioxide 32 Anion Gap 14 BUN 10 Creatinine 0.8 Estimated GFR/1.73 m2 > 60 BUN/Creatinine Ratio 13 Glucose 68 L POC Glucose Calculated Osmolality 279 Calcium 8.3 L Magnesium 1.3 L Total Bilirubin 1.10 H AST 17 ALT 6 L Alkaline Phosphatase 56 Creatine Kinase 69 Troponin T Avz-V-Ttuzfzvyaby Pept 3265 H Total Protein 6.0 L Albumin 3.3 L Globulin 2.7 Albumin/Globulin Ratio 1.2 Lipase 23 Plasma Lactate 0.8 TSH Urine Source Urine Color Urine Turbidity Urine pH Ur Specific [place] Urine Protein Ur Glucose (Stick) Ur Ketones (Stick) Urine Blood Urine Nitrite Urine Bilirubin Urobilinogen Dipstick Urine Leukocytes Urine WBC (Auto) Urine RBC (Auto) U Epithel Cells (Auto) Urine Bacteria (Auto) Urine Crystals Small Round Cells Urine Casts Urine Yeast-like Cells Blood Type Antibody Screen 07/20/18 07/20/18 07/20/18 07:34 07:34 07:34 WBC RBC Hgb Hct MCV MCH MCHC RDW Std Deviation Plt Count MPV Immature Gran % (Auto) Neut % (Auto) Lymph % (Auto) Hettinger % (Auto) Eos % (Auto) Baso % (Auto) Immature Gran # (Auto) Neut # (Auto) Lymph # (Auto) Hettinger # (Auto) Eos # (Auto) Baso # (Auto) PT 20.4 H INR 1.62 PTT (Actin FS) 48.1 H Sodium Potassium Chloride Carbon Dioxide Anion Gap BUN Creatinine Estimated GFR/1.73 m2 BUN/Creatinine Ratio Glucose POC Glucose Calculated Osmolality Calcium Magnesium Total Bilirubin AST ALT Alkaline Phosphatase Creatine Kinase Troponin T 0.021 Cih-W-Uvcyulypafv Pept Total Protein Albumin Globulin Albumin/Globulin Ratio Lipase Plasma Lactate TSH Urine Source Urine Color Urine Turbidity Urine pH Ur Specific [place] Urine Protein Ur Glucose (Stick) Ur Ketones (Stick) Urine Blood Urine Nitrite Urine Bilirubin Urobilinogen Dipstick Urine Leukocytes Urine WBC (Auto) Urine RBC (Auto) U Epithel Cells (Auto) Urine Bacteria (Auto) Urine Crystals Small Round Cells Urine Casts Urine Yeast-like Cells Blood Type A POSITIVE Antibody Screen NEGATIVE 07/20/18 08:22 WBC RBC Hgb Hct MCV MCH MCHC RDW Std Deviation Plt Count MPV Immature Gran % (Auto) Neut % (Auto) Lymph % (Auto) Hettinger % (Auto) Eos % (Auto) Baso % (Auto) Immature Gran # (Auto) Neut # (Auto) Lymph # (Auto) [place]ting[place] # (Auto) Eos # (Auto) Baso # (Auto) PT INR PTT (Actin FS) Sodium Potassium Chloride Carbon Dioxide Anion Gap BUN Creatinine Estimated GFR/1.73 m2 BUN/Creatinine Ratio Glucose POC Glucose Calculated Osmolality Calcium Magnesium Total Bilirubin AST ALT Alkaline Phosphatase Creatine Kinase Troponin T Aeh-E-Zohmynubdsc Pept Total Protein Albumin Globulin Albumin/Globulin Ratio Lipase Plasma Lactate TSH Urine Source CATH Urine Color YELLOW Urine Turbidity CLEAR Urine pH 6.5 Ur Specific [place] 1.017 Urine Protein TRACE A Ur Glucose (Stick) NEGATIVE Ur Ketones (Stick) 20 A Urine Blood NEGATIVE Urine Nitrite NEGATIVE Urine Bilirubin NEGATIVE Urobilinogen Dipstick 12 A Urine Leukocytes SMALL A Urine WBC (Auto) 20-40 A Urine RBC (Auto) <10 U Epithel Cells (Auto) <10 Urine Bacteria (Auto) NEGATIVE Urine Crystals Not Reportable Small Round Cells Not Reportable Urine Casts Not Reportable Urine Yeast-like Cells PRESENT Blood Type Antibody Screen Orders Category Date Time Status Finger Stick Blood Sugar (ED) DIRECTED Care 07/20/18 07:49 Active Saline Loc NOW Care 07/20/18 07:49 Active Straight Catheterization ORDERED Care 07/20/18 07:49 Active CHEST-PORTABLE [RAD] Stat Exams 07/20/18 07:[address] ABD/PELVIS W/IV CONT ONLY [CT] Stat Exams 07/20/18 07:[address] HEAD W/O CONTRAST [CT] Stat Exams 07/20/18 07:51 Completed BLOOD CULTURE [BLDCUL] Stat Lab 07/20/18 08:29 Ordered CBC WITH ELECTRONIC DIFF [HEME] Stat Lab 07/20/18 07:34 Completed CK PROFILE [SP CHEM] Stat Lab 07/20/18 07:34 Completed COMPREHENSIVE METABOLIC PANEL [CHEM] Stat Lab 07/20/18 07:34 Completed INFLUENZA SCREEN A/B Stat Lab 07/20/18 08:14 Completed LACTATE, PLASMA [CHEM] Stat Lab 07/20/18 07:34 Completed LIPASE [CHEM] Stat Lab 07/20/18 07:34 Completed MAGNESIUM [CHEM] Stat Lab 07/20/18 07:34 Completed OCCULT BLOOD SCREENING [STOOL] Stat Lab 07/20/18 08:09 Completed PRO B-NATRIURETIC PEPTIDE Stat Lab 07/20/18 07:34 Completed PROTIME WITH INR [COAG] Stat Lab 07/20/18 07:34 Completed PTT [COAG] Stat Lab 07/20/18 07:34 Completed TROPONIN T Stat Lab 07/20/18 07:34 Completed TSH Stat Lab 07/20/18 07:34 Completed TYPE & SCREEN [BBK] Stat Lab 07/20/18 07:34 Completed URINALYSIS W/POSS RFLX CULT [URINALYSIS] Stat Lab 07/20/18 08:22 Completed URINE CULTURE [RM] Routine Lab 07/20/18 10:29 Received URINE MANUAL MICROSCOPIC [URINALYSIS] Stat Lab 07/20/18 08:22 Completed 0.9% Sodium Chloride Inj [Ns] 1,000 ml Med 07/20/18 07:52 Discontinued IV 999 mls/hr Calcium Chloride Syringe Med 07/20/18 10:54 Discontinued 1 gm IV NOW ONE CefTRIAXONE [Rocephin] 1 gm Med 07/20/18 10:49 Active 0.9% Sodium Chloride Inj [Ns] 50 ml IV NOW Diphenhydramine [Benadryl] Med 07/20/18 07:53 Discontinued 25 mg IV NOW ONE Fluconazole 400 mg/Ns [Diflucan 400 mg/Ns] Med 07/20/18 10:50 Active 400 mg in 200 ml IV NOW Furosemide [Lasix] Med 07/20/18 10:54 Discontinued 60 mg IV NOW ONE Magnesium Sulfate 2 gm/S.w.i. [Magnesium Sulfate 2 gm/S Med 07/20/18 10:41 Active .w.i] 2 gm in 50 ml IV NOW Metoclopramide [Reglan] Med 07/20/18 07:53 Discontinued 10 mg IV NOW ONE Pantoprazole [Protonix] 80 mg Med 07/20/18 07:52 Discontinued 0.9% Sodium Chloride Inj [Ns] 80 ml IV NOW EKG [EKG] Stat Ther 07/20/18 07:49 Draft Result Diagrams: 07/20/18 07:34 07/20/18 07:34 - REASSESSMENT Reassessment #1 Time Reassessed: 11:02 Status: improving (Better after IVF and reglan/benadryl. Also have ordered Calcium Carbonate and Magnesium sulfate. Old chart reviewed, and BNP is improved from prior BNPs. GIvne IV rocephin and Fluconazole for UTI) - CONSULTS/PCP/HOSPITALIST Notification #1 *Consult/PCP/Hospitalist*: JAMES Castillo Time Discussed: 11:03 (admit to [facility]) Consult Disposition: Will see in ED Departure - Departure Date of Disposition Decision: 07/20/18 Time of Disposition Decision: 11:03 DIAGNOSIS: Syncope, near, Hypomagnesemia syndrome, Hypocalcemia syndrome, Vaginal candidosis UTI (urinary tract infection) Qualifiers: Urinary tract infection type: acute cystitis Hematuria presence: without hematuria Qualified Code(s): N30.00 - Acute cystitis without hematuria Anemia Qualifiers: Anemia type: iron deficiency Iron deficiency anemia type: chronic blood loss Qualified Code(s): D50.0 - Iron deficiency anemia secondary to blood loss ( chronic) Disposition: ADMITTED INPATIENT 09 Certified Medical Emergency: Emergent Condition: Fair Referrals and Follow-Ups: Dinora Perez MD [Primary Care Provider] - - Critical Care Note This patient required my direct & personal management of CC.: No Attestation - Physician/ CATINA Attestation Patient care was provided by Advanced Practice Provider:: No The physician spent face to face time with patient:: Yes Advanced Practice Provider documentation review:: Supervising physician onsite and consulted in the evaluation and care of this patient. The physician did have a face to face encounter with the patient. - NIH Stroke Scale Level of Consciousness: 0-Alert LOC Questions (ask month and age): 0-Answers Both Correctly LOC Commands (ask to open & close eyes;make a fist, let go): 0-Obeys Both Correctly Best Gaze (horizontal eye movement): 0-Normal Visual (use finger movement, counting or visual threat): 0-No Visual Loss Facial Palsy (show teeth or raise eyebrows & close eyes tght: 0-Symmetrical Movement Motor Function-left arm: 0-Normal Motor Function-right arm: 0-Normal Motor Function-left le-Normal Motor Function-right le-Normal Limb Ataxia(nhjnjf-nrsr-fbzdty, or heel to obando): 0-No Ataxia Sensory(pin prick to face,arms,trunk,legs-compare side/side): 0-No Ataxia Best Language(name item/read sentence.Ex-Down to Earth): 0-No Aphasia Dysarthria(Pt read words or say words Ex.Mama,Tip-Top,Thanks: 0-Normal Articulation Extinction and Inattention: 0-Normal Modified [place] Score Criteria: 1-no significant disability despite symptoms Stroke tPA Guidelines - Inclusion Criteria for IV tPA 18 years old or older: Yes Ischemic stroke with measurable deficit: No Onset <3 hours ago *OR* 3-4.5 hours ago: No
[2018-07-20] MEDS ORDERED: PROTONIX 80 MG in NS 80 ML IV ONE (07:52)
[2018-07-20] MEDS ORDERED: NS 1,000 ML IV ONE (07:52)
[2018-07-20] MEDS ORDERED: REGLAN IV ONE (07:53)
[2018-07-20] MEDS ORDERED: BENADRYL IV ONE (07:53)
--- NOTE | 2018-07-20 07:55 | EKG Report ---
Test Performed on : 07/20/2018 07:34:28 AM Test Reason : dizziness Blood Pressure : / mmHG Vent. Rate : 066 BPM Atrial Rate : 066 BPM P-R Int : 142 ms QRS Dur : 152 ms QT Int : 480 ms P-R-T Axes : 001 -26 -01 degrees QTc Int : 503 ms Normal sinus rhythm. Right bundle branch block Abnormal ECG When compared with ECG of 22-JUN-2018 06:50, Inverted T waves have replaced nonspecific T wave abnormality in Inferior leads Unconfirmed Result
[2018-07-20 08:26] LABS: BASO# 0.02 X1000 (0.0-0.2); BASO% 0.3 % (0.0-0.8); EOS# 0.46 X1000 (0.0-0.7); EOS% 6.8 % (0.0-10.0); HEMATOCRIT 30.2 % (37.0-47.0); HEMOGLOBIN 9.5 g/dL (12.0-16.0); LYMPH# 1.35 X1000 (1.2-3.4); LYMPH% 20.1 % (20.5-51.1); MCH 29.8 PG (27-31); MCHC 31.5 g/dL (33-37); MCV 94.7 FL (81-99); MONO# 0.69 X1000 (0.11-0.59); MONO% 10.3 % (1.7-9.3); MPV 11.2 FL (7.4-10.4); NEUT# 4.21 X1000 (1.4-6.5); NEUT% 62.5 % (42.2-75.2); PLT 297 X1000 (130-400); RBC 3.19 XMIL (4.2-5.4); RDW 12.9 % (11.5-14.5); WBC 6.73 X1000 (4.8-10.8)
[2018-07-20 08:34] LABS: INR 1.62; PROTIME 20.4 Seconds (11.0-16.0)
[2018-07-20 08:35] LABS: PTT 48.1 Seconds (22.3-41.8)
[2018-07-20 08:36] LABS: URINE SOURCE CATH
[2018-07-20 08:44] LABS: BILIRUBIN URINE NEGATIVE (NEGATIVE); BLOOD URINE NEGATIVE (NEGATIVE); COLOR YELLOW; GLUCOSE URINE NEGATIVE (NEGATIVE); KETONE URINE 20 mg/dL (NEGATIVE); LEUKOCYTES URINE SMALL (NEGATIVE); NITRITE URINE NEGATIVE (NEGATIVE); PH URINE 6.5; PROTEIN URINE TRACE mg/dL (NEGATIVE); SP GRAVITY URINE 1.017; TURBIDITY URINE CLEAR (CLEAR); UROBILINOGEN URINE 12 mg/dL (NORMAL)
[2018-07-20 08:48] LABS: AGAP 14; ALB/GLOB RATIO 1.2; ALBUMIN 3.3 g/dL (3.5-5.0); ALKALINE PHOSPHATASE 56 U/L (32-104); BUN 10 mg/dL (8-22); CALCIUM 8.3 mg/dL (8.8-10.2); CHLORIDE 95 mmol/L (98-107); CK PROFILE 69 U/L (24-173); COSMO 279; CREATININE 0.8 mg/dL (0.5-0.9); ESTIMATED GFR > 60; GLUCOSE 68 mg/dL (70-104); GOT 17 U/L (10-30); GPT 6 U/L (10-36); LIPASE 23 U/L (13-60); MAGNESIUM 1.3 mg/dL (1.5-2.7); POTASSIUM 3.8 mmol/L (3.5-5.1); SODIUM 141 mmol/L (136-145); TCO2 32 mmol/L (25-35)
[2018-07-20 08:56] LABS: UR EPITHELIAL CELLS <10 /HPF (<10); URINE BACTERIA NEGATIVE /HPF; URINE RBC <10 /HPF (<10); URINE WBC 20-40 /HPF (<10)
[2018-07-20 09:05] LABS: URINE YEAST PRESENT
--- NOTE | 2018-07-20 09:45 | Diag Imaging Result Doc PS360 ---
EXAM: CT HEAD W/O CONTRAST 07/20/2018 HISTORY: dizzy, weak TECHNIQUE: This exam was performed using automated exposure control, adjustment of mA or kV according to patient size, and/or use of iterative reconstruction technique. COMMENT: There are some patchy lucencies present in the periventricular white matter as well as lacunae particularly in the anterior limb of the internal capsule and adjacent caudate nucleus region on the left. There is no evidence of mass effect, bleed, or abnormal extra-axial fluid collection. There is some mucosal thickening in the left maxillary sinus which was also present at the time the previous study. There is associated hyperostosis. There is hyperostosis frontalis interna. Overall the appearance of the brain has not changed significantly since 06/16/2018. IMPRESSION: Chronic ischemic microvascular changes. No evidence of acute disease. Electronically signed by Roderick Munoz 07/20/2018 9:43 AM
--- NOTE | 2018-07-20 09:52 | Diag Imaging Result Doc PS360 ---
EXAM: CT ABD/PELVIS W/IV CONT ONLY 07/20/2018 HISTORY: abd pain, dizzy TECHNIQUE: This exam was performed using automated exposure control, adjustment of mA or kV according to patient size, and/or use of iterative reconstruction technique. COMMENT: There is atelectasis versus fibrosis in the posterior costophrenic sulci bilaterally. Compared to the previous CT of the chest dated 06/21/2018 this has improved markedly. There are no previous abdominal studies available for comparison. Is still some pleural fluid bilaterally but again this has improved somewhat since the previous study. There are atherosclerotic calcifications in the aorta and its branches. There is slight dilatation of the infrarenal abdominal aorta to a maximum AP diameter of 2.4 cm. The mesenteric and renal arteries are patent. The spleen is not enlarged. The lateral lobe of the right adrenal gland is slightly enlarged measuring 11 mm in diameter. This has not changed significantly since the previous thoracic study. The pancreas is unremarkable in appearance. The liver is within normal limits. There has been cholecystectomy. There is no evidence of bowel obstruction. Pelvis: There is no evidence of appendicitis. There is a fairly large amount of stool in the rectosigmoid colon. There is diverticulosis in the sigmoid colon without evidence of active diverticulitis. The urinary bladder is not distended. There has been hysterectomy. There are no masses. There is bilateral external iliac adenopathy. There is a bone island in the right femoral head. There are degenerative changes at L5-S1 both in the disc space and the left facet and some facet arthropathy is present bilaterally at the L4-5 level. There are diffuse degenerative disc changes throughout the lumbar spine. IMPRESSION: Constipation. Diverticulosis coli. Probable right adrenal adenoma. Improved bibasilar atelectasis versus pneumonia and pleural effusions. Electronically signed by Roderick Munoz 07/20/2018 9:50 AM
--- NOTE | 2018-07-20 09:57 | Diag Imaging Result Doc PS360 ---
EXAM: CHEST-PORTABLE - 07/20/2018 HISTORY: dizzy, weak TECHNIQUE: Portable chest COMPARISON: 06/28/2018 FINDINGS: Heart size appears borderline enlarged and stable. The lungs appear essentially clear. There is no pleural effusion or pneumothorax identified. IMPRESSION: No acute changes. Electronically signed by Chance Mortensen 07/20/2018 9:54 AM
[2018-07-20] MEDS ORDERED: MAGNESIUM SULFATE 2 GM/S.W.I. 2 GM/50 ML IVPB IV ONE (10:41)
[2018-07-20] MEDS ORDERED: ROCEPHIN 1 GM in NS 50 ML IV ONE ×2 (10:49→15:00)
[2018-07-20] MEDS ORDERED: DIFLUCAN 400 MG/NS 400 MG/200 ML IVPB IV ONE (10:50)
[2018-07-20] MEDS ORDERED: LASIX IV ONE (10:54)
[2018-07-20] MEDS ORDERED: CALCIUM CHLORIDE SYRINGE IV ONE (10:54)
--- NOTE | 2018-07-20 11:00 | ED EKG INTERP ---
This chart was entered by Myra Haines Scribe, acting as scribe for Tony Chen MD. EKG Interpretation - EKG Time of EKG reading by physician:: 07:35 EKG Read and Signed by:: Tony Chen EKG Interpretation (*Must complete 3 of following elements*): Abnormal Rate: 66 Rhythm: nsr [place]: normal QRS: RBB ND Interval: normal ST Wave: normal Prior EKG Comparison: no prior EKG Attestation - Physician/ [place] Attestation Patient care was provided by Advanced Practice Provider:: No The physician spent face to face time with patient:: Yes Advanced Practice Provider documentation review:: Supervising physician onsite and consulted in the evaluation and care of this patient. The physician did have a face to face encounter with the patient. This chart was documented by the indicated scribe, (Myra Haines Scribe) and accurately reflects the services I performed and decisions made by , Tony Chen MD, as attested by the provider's signature.
[2018-07-20] MEDS: NEURONTIN PO SCH ×2 (14:59→22:36)
--- NOTE | 2018-07-20 15:04 | HISTORY AND PHYSICAL ---
ONCOLOGIST: Dr. Michelle Morales. CHIEF COMPLAINT: Orthostatic dizziness. HISTORY OF PRESENT ILLNESS: Mrs. Galeas is a 77-year-old female well known to our service. Last month she was admitted for generalized weakness, gastroenteritis, and acute kidney injury. She subsequently had flash pulmonary edema and went into respiratory failure, requiring a brief period of intubation and mechanical ventilation. She was ultimately found to have a DVT in the lower extremity but no PE and was discharged to rehab. She has since finished that and is living at home. This morning she had what she reports as dizziness when she was trying to get up, and essentially could not get up out of bed. She also reports decreased appetite and p.o. intake. She denies any loss of consciousness, chest pain, or shortness of breath. No nausea or vomiting. No lower extremity edema. No orthopnea. No fever. She does report that her urine is quite yellow but denies any dysuria, increased frequency, or hesitancy. Her laboratory data in the ER shows that she is anemic, which is chronic. She also has hypocalcemia and hypomagnesemia. TSH is noted to be 0.02. 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 Given the above, it was felt that she would need admission for further treatment and evaluation. PAST MEDICAL HISTORY: 1. 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 2. Diabetes mellitus, type 2. 3. Hypothyroidism. 4. Gout. 5. Hyperlipidemia. 6. Hypertension. 7. Diabetic neuropathy. 8. Recent admission for respiratory failure, requiring intubation. 9. DVT, recent diagnosis. SURGICAL HISTORY: She has had pituitary tumor excision, cholecystectomy, bilateral knee surgery, and hysterectomy. SOCIAL HISTORY: She lives with her . No tobacco, alcohol, or drug use. ALLERGIES: No known drug allergies. FAMILY HISTORY: Noncontributory. REVIEW OF SYSTEMS: A 14 point review of systems was obtained and found to be negative with the exception of the HPI. HOME MEDICATIONS: Allopurinol 100 mg p.o. at bedtime, atorvastatin 20 mg p.o. at bedtime, Neurontin 600 mg p.o. t.i.d., Synthroid 112 mcg p.o. daily, Toprol XL 100 mg p.o. daily, pioglitazone 30 mg p.o. daily, Eliquis 10 mg b.i.d. PHYSICAL EXAMINATION: VITAL SIGNS: Blood pressure is 193/98, heart rate 75, respiratory rate 22, O2 saturation 100% on room air, and temperature 98.5. GENERAL: This is an obese, female lying in a hospital bed in no acute distress. NEUROLOGIC: Awake, alert, and oriented. Follows commands without focal deficits. HEENT: The head is atraumatic and normocephalic. Her pupils are equal, round, and reactive to light. Oral mucosa is a bit dry. NECK: Trachea is midline. There is no JVD. CHEST: Clear to auscultation bilaterally. CARDIOVASCULAR: Regular rate and rhythm. S1, S2 is noted. 2/6 murmur is appreciated. GASTROINTESTINAL: Soft. Nondistended and nontender. Bowel sounds are active. EXTREMITIES: No edema. Pulses 1+ bilaterally. DIAGNOSTIC DATA: Head CT with chronic ischemic microvascular changes; nothing acute. Chest x-ray with no pleural effusion or pneumothorax. Heart is borderline enlarged and stable. Abdominal and pelvis CT showed constipation, diverticulosis coli, and probable right adrenal adenoma. There was improved basilar atelectasis versus pneumonia and pleural effusions. WBC is 6.73, hemoglobin 9.5, hematocrit 30.2, and platelet count 297. INR is 1.62. Sodium is 141, potassium 3.8, chloride 95, CO2 32, anion gap 14, BUN 10, creatinine 0.8, glucose 68, calcium 8.3, magnesium 1.3, total bilirubin 1.1, AST 17, ALT 6, alkaline phosphatase 56. proBNP 3265. Albumin 3.3. TSH 0.02. Urine shows 20-40 WBCs, small leukocytes, no blood. ASSESSMENT AND PLAN: 1. Weakness and orthostatic dizziness: She does have some electrolyte abnormalities as well as a low TSH. She is also likely slightly volume depleted. Will check orthostatic vital signs and give her some light intravenous fluids. Check a T4 and T3. Try to improve her oral intake. It would appear that she is protein calorie malnourished and could use at least some mild protein supplementation, so will add some Ensure. 2. Anemia: Will make sure iron studies are up to date and continue treatment. 3. Hypothyroidism: Will make sure and check her T3 and T4. She does have hypothyroidism secondary to pituitary adenoma excision. Will also check a cortisol level in the morning. 4. Hypertension: At this time it appears poorly controlled. Will make sure and add medication as necessary and titrate while she is here and on discharge. 5. Electrolyte abnormalities: Will replace and recheck in the morning. 6. Diabetes mellitus: Add patterned sugar sliding scale insulin. Make sure her hemoglobin A1c is up to date. 7. History of recent deep venous thrombosis: Continue her Eliquis. 8. Deep venous thrombosis prophylaxis provided with her home Eliquis. Further recommendations to follow. Dictated by JAMES Casas for Wolf Jones MD cc: JAMES Casas MD
--- NOTE | 2018-07-20 18:30 | HISTORY AND PHYSICAL ---
ADDENDUM TO HISTORY AND PHYSICAL: HISTORY OF PRESENT ILLNESS: Ms. Galeas got admitted early on today with a history of acute onset of vertigo. Ms. Galeas refers that she was doing remarkably okay yesterday after she was discharged from rehab for the past 7 days. She says she woke up this morning and the first thing she realized was that the entire roof of the house was spinning around. She tried to get up and go for her walker, but she had to lie back because of the severity of the spinning. She felt she was going to fall, and she did not want to fall. She subsequently came to the emergency department where she was evaluated. Initial blood pressure was 196/89. A repeat had come down to 110/98. PHYSICAL EXAMINATION: GENERAL: Current physical exam, Ms. Galeas is a 77-year-old, female. She is in bed. She is not in any cardiopulmonary distress. HEENT: Mucosa is slightly dry. Anicteric. Acyanotic. NECK: Neck is supple. CHEST: Was clear to auscultation. No crepitations. No rhonchi. CARDIOVASCULAR: Regular rate and rhythm. ABDOMEN: Soft, nontender. Bowel sounds present. EXTREMITIES: No pedal edema. [employer] ARCHITECT: The patient is awake, alert, and oriented. There was no focal neurological deficit. I was not able to do her gait, but for the most part, nose point exploration was normal. The dysdiadochokinesis was also normal. IMAGING STUDIES: I reviewed her imaging studies as well. ASSESSMENT: 1. Acute vertigo, etiology is unclear. However, the episode has resolved. Among the differential diagnosis, will be a benign paroxysmal positional vertigo or any posterior circulation infarct. We will get an MRI to rule out any posterior circulation infarct. Once that is ruled out, we can put the patient on inner ear stabilizers and hopefully get her to be seen by ENT at a later date. The patient is currently on gabapentin, which occasionally could be used also for that purposes . 2. Protein calorie malnutrition with prealbumin of 3.0 noted. 3. 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 Patient follows up with Dr Morales and is on scheduled doses of Sandostatin. Please refer to the details of the history and physical in the chart dictated by JAMES Casas. cc: Wolf Jones MD [facility]
[2018-07-20] MEDS: LIPITOR PO SCH (22:35)
[2018-07-20] MEDS: ZYLOPRIM PO SCH (22:35)
[2018-07-20] MEDS: ELIQUIS PO SCH (22:36)
[2018-07-21] MEDS: TYLENOL PO PRN (03:12)
[2018-07-21 06:53] LABS: HEMATOCRIT 25.3 % (37.0-47.0); HEMOGLOBIN 8.2 g/dL (12.0-16.0); MCH 31.1 PG (27-31); MCHC 32.4 g/dL (33-37); MCV 95.8 FL (81-99); RBC 2.64 XMIL (4.2-5.4); WBC 6.47 X1000 (4.8-10.8)
[2018-07-21 07:07] LABS: CALCIUM 8.6 mg/dL (8.8-10.2); POTASSIUM 2.9 mmol/L (3.5-5.1)
[2018-07-21] MEDS ORDERED: MAGNESIUM SULFATE 2 GM/S.W.I. 2 GM/50 ML IVPB IV ONE (08:41)
[2018-07-21] MEDS: SYNTHROID PO SCH (10:02)
[2018-07-21] MEDS: ELIQUIS PO SCH ×2 (10:03→22:08)
[2018-07-21] MEDS: NEURONTIN PO SCH ×3 (10:03→22:06)
[2018-07-21] MEDS: ICAR-C PO SCH (10:03)
[2018-07-21] MEDS: TOPROL XL PO SCH (10:03)
[2018-07-21] MEDS: NS 1,000 ML IV SCH (10:05)
--- NOTE | 2018-07-21 10:08 | Diag Imaging Result Doc PS360 ---
EXAM: MRI BRAIN W/WO CONTRAST 07/21/2018 HISTORY: acute vertigo TECHNIQUE: T1 sagittal, T1 axial and post gadolinium-enhanced axial and coronal reformation, T2, FLAIR, DWI axial and coronal gradient echo. COMMENT: There is an empty sella. There are patchy areas of increased T2-weighted signal intensity bilaterally particularly in the periventricular white matter. There is no evidence of restricted diffusion. There is no evidence of bleed or abnormal extra-axial fluid collection. The calvarium is somewhat hyperostotic. There is no evidence of abnormal gadolinium enhancement. IMPRESSION: Chronic ischemic microvascular disease. No evidence of acute intracranial abnormality. Electronically signed by Roderick Munoz 07/21/2018 10:06 AM
[2018-07-21] MEDS: POTASSIUM CHLORIDE 20 MEQ/SWI 20 MEQ/100 ML IVPB IV SCH ×2 (11:21→13:27)
--- NOTE | 2018-07-21 16:13 | PROGRESS NOTE ---
DATE: 07/21/2018 SUBJECTIVE: This morning Ms. Galeas referred to be feeling a lot better. She says she has not had any more of the dizziness. However, she did say that when she stood up with therapy, she felt unbalanced. She felt unsteady. I understand she was able to ambulate about 20 feet around with contact guard assist. OBJECTIVE: Vital signs: Blood pressure is currently 158/72, pulse is 66, respiration is 20 and temperature is 98.5 degrees. General: Ms. Hagan is a 77-year-old female. She is in bed. She is not in any cardiopulmonary distress. HEENT: Mucosa is pink and moist. Anicteric. Acyanotic. Neck: Supple. Chest: Clear to auscultation. There was no crepitations, no rhonchi. Cardiovascular: Regular rate and rhythm. No murmurs, no rubs, no gallops. Gastrointestinal: Abdomen was soft, nontender. Bowel sounds present. There was no hepatosplenomegaly. Extremities: No pedal edema. Genitourinary: was unremarkable. DANDY TENDER: Patient is awake, alert. I did not find any neurological deficit. LABORATORY DATA: WBC is 6.47, hemoglobin is 8.2, platelet count of 296. Chemistry is also reviewed. Sodium is 138, potassium is 2.9, chloride is 91, bicarbonate is 41, creatinine is 1.0. IMAGING STUDIES: An MRI of the brain showed chronic ischemic microvascular changes, but no evidence of acute intracranial pathology. ASSESSMENT: 1. Acute vertigo syndrome presumably from benign paroxysmal positional vertigo. MRI has ruled out any posterior circulation infarct. The patient is currently asymptomatic. We have advised that she follows up with ENT. 2. Dizziness. It appears that Ms. Galeas got dizzy upon standing up with physical therapy, which gives the impression that she probably was slightly orthostatic. She is currently on intravenous fluids, and we plan to continue this slow hydration overnight and re-evaluate her. 3. Metabolic alkalosis likely due to contraction alkalosis from diuretic therapy. We will continue with gentle hydration, re-evaluate her electrolytes in the morning. 4. Hypokalemia. We will replace this. cc: Wolf Jones MD
[2018-07-21] MEDS: LIPITOR PO SCH (21:05)
[2018-07-21] MEDS: ZYLOPRIM PO SCH (22:06)
[2018-07-22] MEDS: TYLENOL PO PRN (03:43)
[2018-07-22] MEDS: NS 1,000 ML IV SCH (03:44)
[2018-07-22 06:21] LABS: HEMATOCRIT 23.8 % (37.0-47.0); MCH 32.9 PG (27-31); MCHC 33.6 g/dL (33-37); MCV 97.9 FL (81-99); RBC 2.43 XMIL (4.2-5.4); RDW 13.4 % (11.5-14.5); WBC 6.33 X1000 (4.8-10.8)
[2018-07-22 06:28] LABS: CALCIUM 8.4 mg/dL (8.8-10.2); MAGNESIUM 1.7 mg/dL (1.5-2.7); POTASSIUM 3.2 mmol/L (3.5-5.1)
[2018-07-22] MEDS: SYNTHROID PO SCH (09:41)
[2018-07-22] MEDS: TOPROL XL PO SCH (09:41)
[2018-07-22] MEDS: ICAR-C PO SCH (09:41)
[2018-07-22] MEDS: NEURONTIN PO SCH (09:41)
[2018-07-22] MEDS: ELIQUIS PO SCH (09:41)
[2018-07-22 11:29] VITALS: BP 147/61
--- NOTE | 2018-07-23 17:15 | DISCHARGE SUMMARY ---
ADMISSION DATE: 07/20/2018 DISCHARGE DATE: 07/22/2018 DISPOSITION: Home. FOLLOWUP: 1. Dr. Perez. 2. Dr. Bagley. ADMISSION DIAGNOSES: 1. Weakness and orthostatic dizziness. 2. Anemia. 3. Hypertension. 4. Diabetes mellitus. DISCHARGE DIAGNOSES: 1. Dizziness, secondary to orthostatic hypotension. 2. Acute vertigo. 3. Hypothyroidism. 4. Hypertension. 5. Mineral deficiencies (hypokalemia and hypomagnesemia) were all replaced. 6. Constipation. 7. Peripheral autonomic neuropathy. The patient is on gabapentin. 8. Bilateral lower extremity DVTs. The patient is on Eliquis. 9. History of acromegaly. The patient follows up with Dr. Morales. 10. An 11 mm right adrenal gland enlargement. 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 DISCHARGE MEDICATIONS: 1. Atorvastatin 20 mg p.o. at bedtime. 2. Metoprolol ER 100 mg daily. 3. Pioglitazone 30 mg daily. 4. Allopurinol 100 mg p.o. at bedtime. 5. Gabapentin 600 p.o. 3 times per day. 6. Apixaban 5 mg b.i.d. 7. Levothyroxine 112 mcg daily. 8. Marzena-Colace 1 tablet b.i.d. 9. Iron 1 tablet daily. PRESENTING COMPLAINT: Dizziness. HISTORY OF PRESENTING COMPLAINT: Ms. Galeas is a 77-year-old female who is who is known to have acromegaly, status post adenoma removal with gamma knife and radiation. Follows up with Dr. Morales for Sandostatin therapy. Came to the emergency department because of dizziness. Initially, she refers that she became dizzy most times when she stood up. Later on. While questioning further, she did refer that she also had an episode of acute vertigo. Her history was not all the time consistent, however. Upon presentation, her blood pressure supine was 154/73 standing. Systolic went down to 133/103. Systolic difference was over 20, which was consistent with orthostatic hypotension. She was subsequently admitted for further medical care. HOSPITAL COURSE: Ms. Galeas was admitted to the medical floor under telemonitoring. She was adequately hydrated. Because of a history of acute vertigo, an MRI of the brain was done, which was unremarkable, except for chronic ischemic microvascular disease. There was no evidence of acute intracranial pathology. CT scan of the abdomen and pelvic only showed constipation and diverticulosis. There was also probably a right adrenal adenoma. However, the measurement was only 11 mm. The patient was advised to follow up with her primary care doctor. She also follows up with Endocrine in [facility] because of acromegaly. This morning, Ms. Galeas referred to be doing a whole lot better. She has been adequately fluid resuscitated. She denies any more dizziness. She denies any more vertigo. Her orthostatic vitals have been rechecked. Currently, supine is 140/76, and standing is 158/72, which is an adequate response, and she has been asymptomatic. Her daughter was at the bedside at the time of the encounter. Ms Galeas is currently clinically stable for discharge. Because the MRI was negative, she has been advised to follow up with ENT to rule out any inner ear abnormality, especially because of the acute vertigo, to rule out the possibility of benign positional paroxysmal vertigo. Ms. Galeas is also going to be discharged with [facility]. All the discharge instructions have been discussed with her she voices understanding. Her daughter, who was also at the bedside, voiced understanding. TIME SPENT FOR DISCHARGE: 34 minutes. cc: MD Dinora Case MD Glenn A. Godwin
== END 2018-07-22 13:49 | disposition home health service (06) | DRG 312 ==
LOC: SUPCPDRO → ED 07:22 → 4N 12:29
PROVIDERS: ATTEND Internal Medicine
CPT/HCPCS: 51701; 70450; 70553; 71010; 71045; 74177; 80048; 80053; 81001; 82270; 82533; 82550; 82948; 83605; 83690; 83735; 83880; 84134; 84439; 84443; 84480; 84481; 84484; 85025; 85027; 85610; 85730; 86850; 86900; 86901; 87040; 87088; 87275; 87276; 87804; 93005; 96365; 96367; 96375; 97116; 97162; 97530; 99285; A9270; A9579; C9113; J0696; J1200; J1450; J1940; J2765; J3475; J3480; J7030; P9612; Q9966; Q9967; S0164; XXXXX